=== PATIENT | male | born 1985 | race Two or more races ===

== ENCOUNTER 2020-09-24 09:15 | Outpatient (REF) | payer MEDICARE, MEDICAID, SELFPAY ==
[2020-09-24 09:39] LABS: MANUAL DIFF FLAG NO
[2020-09-24 09:43] LABS: Basophils Percent Auto 0.1 % (0-2); Eosinophils Absolute Auto 0.2 X10*3/uL (0.0-0.4); Eosinophils Percent Auto 1.3 % (0-4); Hematocrit 45.5 % (42-52); Hemoglobin 14.6 g/dl (14.0-18.0); Imm Gran Abs Auto 0.03 X10*3/uL (0.00-0.03); Imm Gran Pct Auto 0.2 % (0.0-0.4); Lymphocytes Percent Auto 36.7 % (20-40); Mean Corpuscular HGB Conc 32.1 g/dl (31.0-36.0); Mean Corpuscular Hemoglobin 29.3 pg (27.0-33.0); Mean Corpuscular Volume 91.4 fL (80-98); Mean Platelet Volume 9.4 fL (9.4-12.4); Monocytes Absolute Auto 0.4 X10*3/uL (0.1-1.2); Monocytes Percent Auto 3.1 % (2-11); Neutrophils Absolute Auto 7.9 X10*3/uL (2.0-8.3); Neutrophils Percent Auto 58.6 % (45-73); Platelet Count 359 X10*3/uL (160-400); Red Blood Count 4.98 X10*6/uL (4.60-5.80); Red Cell Distribution Width 13.4 % (11.0-16.0); White Blood Count 13.5 X10*3/uL (4.8-10.8)
[2020-09-24 10:15] LABS: Alanine Aminotransferase 9 U/L (0-40); Albumin Level 3.9 g/dL (3.5-5.0); Alkaline Phosphatase 129 U/L (39-117); Anion Gap 13 (12-20); Aspartate Amino Transferase 15 U/L (5-37); Bilirubin Total 0.2 mg/dL (0.0-1.0); Blood Urea Nitrogen 11 mg/dL (9-16); Calcium 8.9 mg/dL (8.4-10.2); Carbon Dioxide 25 mmol/L (22-29); Chloride 109 mmol/L (96-108); Cholesterol 176 mg/dL; Estimated Glomerular Filt Rate > 60; Glucose Fasting 86 mg/dL (60-99); HDL Cholesterol 41 mg/dL; LDL Cholesterol Calculated 115 mg/dl; Potassium 4.1 mmol/L (3.3-5.1); Sodium 143 mmol/L (135-145); Total Protein 7.8 g/dL (6.5-8.0); Triglycerides 104 mg/dL
[2020-09-24 10:35] LABS: TSH reflex Free T4 0.61 uIU/mL (0.32-4.0); Vitamin D 25-OH Total 31.9 ng/mL (>30)
[2020-09-24 10:53] LABS: Folate 9.7 ng/mL (> or = 4.0); Vitamin B12 861 pg/mL (200-900)
== END 2020-09-24 09:16 | disposition home or self-care (01) ==
LOC: HO.LAB 09:15
PROVIDERS: PCP Internal Medicine; Visit Provider Internal Medicine
DX: Z00.00 Encounter for general adult medical examination without abnormal findings (principal); G80.9 Cerebral palsy, unspecified; G80.0 Spastic quadriplegic cerebral palsy; G40.909 Epilepsy, unspecified, not intractable, without status epilepticus
CPT/HCPCS: 36415; 80053; 80061; 82306; 82607; 82746; 84443; 85025

== ENCOUNTER 2021-04-03 10:55 | Outpatient (REF) | payer MEDICARE, MEDICAID, SELFPAY ==
[2021-04-03 12:01] LABS: MANUAL DIFF FLAG NO
[2021-04-03 12:05] LABS: Basophils Percent Auto 0.2 % (0-2); Eosinophils Absolute Auto 0.2 X10*3/uL (0.0-0.4); Eosinophils Percent Auto 0.9 % (0-4); Hemoglobin 16.6 g/dl (14.0-18.0); Imm Gran Abs Auto 0.05 X10*3/uL (0.00-0.03); Imm Gran Pct Auto 0.3 % (0.0-0.4); Lymphocytes Absolute Auto 4.6 X10*3/uL (1.2-4.9); Lymphocytes Percent Auto 26.5 % (20-40); Mean Corpuscular HGB Conc 31.3 g/dl (31.0-36.0); Mean Corpuscular Hemoglobin 27.5 pg (27.0-33.0); Mean Corpuscular Volume 87.7 fL (80-98); Monocytes Absolute Auto 0.4 X10*3/uL (0.1-1.2); Monocytes Percent Auto 2.4 % (2-11); Neutrophils Percent Auto 69.7 % (45-73); Platelet Count 343 X10*3/uL (160-400); Red Blood Count 6.04 X10*6/uL (4.60-5.80); Red Cell Distribution Width 14.3 % (11.0-16.0); White Blood Count 17.2 X10*3/uL (4.8-10.8)
[2021-04-03 12:25] LABS: Alanine Aminotransferase 13 U/L (0-40); Albumin Level 4.7 g/dL (3.5-5.0); Alkaline Phosphatase 132 U/L (39-117); Anion Gap 20 (12-20); Aspartate Amino Transferase 26 U/L (5-37); Bilirubin Total 0.8 mg/dL (0.0-1.0); Blood Urea Nitrogen 13 mg/dL (9-16); Calcium 10.4 mg/dL (8.4-10.2); Carbon Dioxide 23 mmol/L (22-29); Chloride 105 mmol/L (96-108); Cholesterol 166 mg/dL; Estimated Glomerular Filt Rate > 60; Glucose Fasting 97 mg/dL (60-99); HDL Cholesterol 49 mg/dL; LDL Cholesterol Calculated 102 mg/dl; Potassium 4.8 mmol/L (3.3-5.1); Sodium 143 mmol/L (135-145); Total Protein 8.8 g/dL (6.5-8.0); Triglycerides 78 mg/dL
[2021-04-03 12:48] LABS: TSH reflex Free T4 1.23 uIU/mL (0.32-4.0); Vitamin D 25-OH Total 44.4 ng/mL (>30)
[2021-04-09 04:06] LABS: Levetiracetam Keppra 8.8 mcg/mL (12.0-46.0)
== END 2021-04-03 10:56 | disposition home or self-care (01) ==
LOC: HO.LAB 10:55
PROVIDERS: PCP Internal Medicine; Visit Provider Internal Medicine
DX: Z00.00 Encounter for general adult medical examination without abnormal findings (principal); E55.9 Vitamin D deficiency, unspecified; G40.909 Epilepsy, unspecified, not intractable, without status epilepticus; Z79.899 Other long term (current) drug therapy
CPT/HCPCS: 36415; 80053; 80061; 80177; 82306; 84443; 85025

== ENCOUNTER 2021-11-22 09:39 | Outpatient (REF) | payer MEDICARE, MEDICAID, SELFPAY ==
[2021-11-22 10:21] LABS: MANUAL DIFF FLAG NO
[2021-11-22 10:40] LABS: Basophils Percent Auto 0.6 % (0-2); Eosinophils Absolute Auto 0.4 X10*3/uL (0.0-0.4); Eosinophils Percent Auto 6.3 % (0-4); Hematocrit 45.9 % (42.0-52.0); Hemoglobin 14.6 g/dl (14.0-18.0); Imm Gran Abs Auto 0.02 X10*3/uL (0.00-0.03); Imm Gran Pct Auto 0.3 % (0.0-0.4); Lymphocytes Absolute Auto 3.3 X10*3/uL (1.2-4.9); Lymphocytes Percent Auto 46.9 % (20-40); Mean Corpuscular HGB Conc 31.8 g/dl (31.0-36.0); Mean Corpuscular Hemoglobin 29.1 pg (27.0-33.0); Mean Corpuscular Volume 91.4 fL (80.0-98.0); Mean Platelet Volume 9.5 fL (9.4-12.4); Monocytes Absolute Auto 0.3 X10*3/uL (0.1-1.2); Monocytes Percent Auto 4.7 % (2-11); Neutrophils Absolute Auto 2.9 x10*3/uL (2.0-8.3); Neutrophils Percent Auto 41.2 % (45-73); Platelet Count 320 X10*3/uL (160-400); Red Blood Count 5.02 X10*6/uL (4.60-5.80); Red Cell Distribution Width 13.2 % (11.0-16.0)
[2021-11-22 10:58] LABS: Alanine Aminotransferase 13 U/L (0-40); Albumin Level 3.9 g/dL (3.5-5.0); Alkaline Phosphatase 113 U/L (39-117); Anion Gap 12 (12-20); Aspartate Amino Transferase 17 U/L (5-37); Bilirubin Total 0.2 mg/dL (0.0-1.0); Blood Urea Nitrogen 24 mg/dL (9-16); Calcium 9.4 mg/dL (8.4-10.2); Carbon Dioxide 22 mmol/L (22-29); Chloride 111 mmol/L (96-108); Estimated Glomerular Filt Rate > 60; Glucose Random 89 mg/dL (60-115); Potassium 4.5 mmol/L (3.3-5.1); Sodium 140 mmol/L (135-145); Total Protein 7.6 g/dL (6.5-8.0)
== END 2021-11-22 09:40 | disposition home or self-care (01) ==
LOC: HO.LAB 09:39
PROVIDERS: PCP Internal Medicine; Visit Provider Internal Medicine
DX: D72.829 Elevated white blood cell count, unspecified (principal); E83.52 Hypercalcemia
CPT/HCPCS: 36415; 80053; 85025

== ENCOUNTER 2022-09-04 12:25 | Inpatient (IN) | payer MEDICARE, MEDICAID, SELFPAY ==
[2022-09-04] VITALS (42 sets, daily range): BP systolic 60–152; BP diastolic 31–71; PULSE 96–170; RESP 18–40; TEMP 33.2–38; O2SAT 87–100
--- NOTE | 2022-09-04 | ECG_ITS ---
Test Reason : repeat Blood Pressure : / mmHG Vent. Rate : 110 BPM Atrial Rate : 110 BPM P-R Int : 100 ms QRS Dur : 078 ms QT Int : 384 ms P-R-T Axes : 061 105 064 degrees QTc Int : 519 ms Sinus tachycardia with short UT Rightward axis Borderline ECG When compared with ECG of 04-SEP-2022 12:44, Rate slower Referred By: Dion Gibson Electronically Signed By:KATE CORDON
--- NOTE | ~2022-09-04 | XR_ITS ---
EXAMINATION: XR CHEST CLINICAL INFORMATION: Central line COMPARISON: Chest radiograph today just over one hour ago at 1:28 PM TECHNIQUE: Frontal view of the chest was obtained. FINDINGS: Since the prior study, a left IJ catheter has been placed with its tip in the SVC. Position. No left-sided pneumothorax. An NG tube remains in good position with its tip in the stomach and the patient's ET tube is 4.5 cm above the markos -at the time of the prior exam it was stated that the ET tube is 2 cm above the markos which was not well seen on that study. The current measurement is more accurate. No change in the diffuse pulmonary airspace disease. There is a cavity present measuring 3.0 x 2.2 cm in the left upper lobe. XR/XR chest 1V IMPRESSION: 1. Newly placed left IJ catheter with tip in SVC. No evidence of pneumothorax. 2. The ET tube is 4.5 cm above the markos. 3. Diffuse airspace disease unchanged. There is a left upper lobe cavitary lesion measuring 3 cm which was present at the time of the prior study earlier today as well.
--- NOTE | ~2022-09-04 | XR_ITS ---
EXAMINATION: XR CHEST CLINICAL INFORMATION: Intubated COMPARISON: Chest radiograph 06/29/2018 TECHNIQUE: Frontal view of the chest was obtained. FINDINGS: Heart size is normal. Diffuse pulmonary airspace disease is seen. An ET tube is present about 2 cm above the markos. An NG tube is present with its tip in the stomach. Patient's arm overlies the right hemithorax and mediastinum obscuring detail. No lung masses. No pneumothorax. XR/XR chest 1V IMPRESSION: ET tube 2 cm above the markos. Diffuse pulmonary airspace disease. Findings would include diffuse edema, infection or ARDS. All of these findings are new since the 06/29/2018 study was essentially normal
--- NOTE | ~2022-09-04 | MR_ITS ---
EXAMINATION: MRI BRAIN WITHOUT CONTRAST CLINICAL INFORMATION: Persistent encephalopathy after cardiac arrest. COMPARISON: CT head 09/06/2017. TECHNIQUE: Multiplanar MR imaging the brain was performed without contrast. FINDINGS: There is relatively extensive restricted diffusion involving the basal ganglia, thalami, and the cortical arechiga matter of both frontal, parietal, and occipital lobes. Findings are consistent with severe hypoxic ischemic injury in the setting of cardiac arrest. 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 There is no abnormal extra axial collection or hydrocephalus. Midline structures including the cervicomedullary junction are normal. No acute bone marrow signal changes. There are trace mastoid effusions. Moderate paranasal sinus disease primarily affecting the sphenoid sinus. Globes and orbits are symmetric. MR/MR head/brain wo con IMPRESSION: Findings are consistent with severe hypoxic ischemic injury in the setting of cardiac arrest. In addition to these findings there are multiple congenital and or chronic abnormalities including extensive polymicrogyria involving both frontal lobes and global loss of parenchymal volume resulting in ex vacuo enlargement of the lateral ventricles and widening of the Sylvian fissures.
[2022-09-04 13:15] LABS: Hematocrit 48.5 % (42.0-52.0); Hemoglobin 13.3 g/dl (14.0-18.0); Mean Corpuscular HGB Conc 27.4 g/dl (31.0-36.0); Mean Corpuscular Volume 105.7 fL (80.0-98.0); Mean Platelet Volume 12.1 fL (9.4-12.4); Red Blood Count 4.59 X10*6/uL (4.60-5.80); White Blood Count 16.1 X10*3/uL (4.8-10.8)
[2022-09-04] MEDS: 0.9 % Sodium Chloride 1,000 ML 999 ML IV ×2 (13:15→14:12)
[2022-09-04 13:38] LABS: Platelet Count 94 X10*3/uL (160-400)
[2022-09-04 13:43] LABS: Band Neutrophils Percent 2 % (3-5); Eosinophils Absolute Manual 0.2 X10*3/uL (0.0-0.4); Eosinophils Percent Manual 1 % (0-4); Lymphocytes Absolute Manual 7.1 X10*3/uL (1.2-4.9); Lymphocytes Percent Manual 44 % (20-40); Metamyelocytes Absolute 0.2 X10*3/uL; Metamyelocytes Percent 1 %; Neutrophils Absolute Manual 8.7 X10*3/uL (2.0-8.3); Neutrophils Percent Manual 52 % (45-73); Nucleated Red Blood Cells 1 /100WBC (0-0)
[2022-09-04 13:45] LABS: Acanthocytes 1+ (0-2) /OIF; Burr Cells 3+ (>5) /OIF; Platelet Estimate DECREASED (NORMAL); RBC Morphology NOTED; Schistocytes 1+ (0-2) /OIF; Smudge Cells PRESENT
--- NOTE | 2022-09-04 13:45 | ED.GENADULT ---
HPI - General Adult General Chief complaint: Cardiac Arrest/CPR Stated complaint: Cardiac arrest Time Seen by Provider: 09/04/22 12:29 Source: patient Mode of arrival: ambulatory Limitations: physical limitation History of Present Illness HPI narrative: 37-year-old male with history of cerebral palsy, general debilitation presents with unresponsiveness. Mother witnessed aspiration event prior to arrival. Upon my evaluation, patient was apneic and pulseless. CPR was initiated need immediately. Patient is unable to provide history. Otherwise, mother reports patient was in his usual state health prior to arrival. Related Data Home Medications Medication Instructions Recorded Confirmed levetiracetam 250 mg tablet 500 mg PO BID 03/31/22 09/04/22 Previous Rx's Medication Instructions Recorded cldoghlvievhrju-PY-efmmdulmbwu 30 10 ml PO Q6H PRN cold symptoms 08/25/22 mg-15 mg-200 mg/5 mL oral solution #474 mL Allergies Allergy/AdvReac Type Severity Reaction Status Date / Time Proventil Allergy Unknown Unknown Uncoded 03/31/22 09:28 tylenol syrup Allergy Unknown Unknown Uncoded 03/31/22 09:28 Review of Systems Review of Systems: Yes unobtainable due to endotracheal tube and Unobtainable due to mental condition [facility] Past Medical History Medical History Asthma Cerebral palsy Constipation Contracture of multiple joints Epilepsy Seborrheic dermatitis of scalp Severely underweight adult 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 Surgical History No significant past surgical history Family History Family History Father Diabetes mellitus Hypertension Mother Asthma Heart disease Social History Social History Housing: Apartment Alcohol intake: never Patient Tobacco Use Status: Never used Tobacco Second Hand Smoke Exposure: No Advance Directives: No Advance Directives Information Provided: Yes service: No Current occupational status: disabled Physical Exam ED Vital Signs: Vital Signs - 24 hr 09/04/22 13:16 09/04/22 13:37 09/04/22 13:44 Temperature Pulse Rate 109 H 110 H Respiratory Rate 18 30 H Blood Pressure 105/49 L 106/60 Pulse Oximetry 100 100 Fraction of Inspired Oxygen 100 09/04/22 13:47 Temperature 97 F Pulse Rate Respiratory Rate Blood Pressure Pulse Oximetry Fraction of Inspired Oxygen BMI result Body Mass Index 7.9 GEN: Is chronic ill-appearing, small for a ditch, contracted, unresponsive, apneic HEENT: Normocephalic, atraumatic, normal external ears, nose appears normal Neck: Supple, no lymphadenopathy Respiratory: Apneic Cardiovascular: Pulseless Abdomen: Soft, nondistended Extremities: No clubbing cyanosis or edema Neurologic: No obvious neurologic activity Skin: No rash Course Course Course Narrative: 37-year-old male with multiple chronic medical problems presents with unresponsiveness followed a witnessed aspiration event. Upon arrival, patient was pulseless and apneic. CPR was initiated immediately. Patient had at least 3 rounds of epinephrine intravenously through an IO. He received 1 amp of sodium bicarbonate as well. There is no history of renal dysfunction to indicate a reason to give calcium. Ultimately, patient was intubated successfully using a glide scope. X-ray confirmed appropriate ET tube placement. Eventually, pulses an electrical activity were obtained. Blood pressure became hypertensive and heart rate well over 150. Heart rate steadily improved into the low 100s. An EKG initially at a faster heart rate revealed a slightly widened QRS pattern likely rate related. As his heart rate improved, his EKG showed sinus tachycardia without a widened QRS. Once patient became more stable, family was present. I consented the patient for central line which was successfully placed on the left IJ. the IJ placement was confirmed by x-ray, the tip of the catheter was at the cavoatrial junction. Patient was admitted to the ICU. Medications Administered Generic Name Dose Route Start Last Admin Trade Name Freq PRN Reason Stop Dose Admin Sodium Chloride 1,000 mls @ 999 mls/hr 09/04/22 14:15 09/04/22 14:12 Ns IV 09/04/22 15:15 999 mls/hr .Q1H1M CAT Administration Norepinephrine Bitartrate 8 mg in 250 mls @ 0 mls/hr 09/04/22 14:15 09/04/22 14:38 Levophed IV 0.5 mcg/kg/min .Q0M CAT 19.69 mls/hr Administration Protocol Per Protocol Discontinued Medications Generic Name Dose Route Start Last Admin Trade Name Freq PRN Reason Stop Dose Admin Sodium Chloride 1,000 mls @ 999 mls/hr 09/04/22 13:15 09/04/22 13:44 Ns IV 09/04/22 14:15 Infused .Q1H1M [facility] Infusion Procedures Procedure Narrative Procedure Narrative: CPR: Patient was found pulseless and apneic. CPR was performed at my direction. Chest compressions, frequent rhythm checks, bedside echocardiography, administration of intravenous medications including epinephrine and sodium bicarbonate were performed. Patient was successfully resuscitated. Central Line Placement Left IJ: Time Out Performed: Yes Patient Placed on Monitor/Pulse Ox: Yes MD Prep: mask, gown and gloves Central Line Prep: Chlorhexidine scrub and sterile drapes applied Local Anesthetic: lidocaine 1% Amount of anesthesia used (mL): 3 Ultrasound Used for Placement: Yes Central Line Lumen Inserted: triple Post Procedure: sutured in place, good blood return, all ports aspirated, flushed, capped and sterile dressing applied Post Procedure X-Ray: tip of catheter in good position and no pneumothorax seen Patient Tolerated Procedure: well Complications: none Intubation Time out performed: Yes sedative: none Laryngoscope: other (Elysian scope) ET Tube Size: 7 ET Tube Uncuffed: No Tube Secured Depth (cm): 22 Tube Secured Location: lips Tube Placement Confirmation: visualized tube passing through cords, equal breath sounds bilaterally and confirmation by capnometry Patient Tolerated Procedure: well Intubation Complications: none Medical Decision Making Medical Decision Making [facility] Narrative: 37-year-old male chronically ill presents after witnessed aspiration event found in the emergency department the apneic and pulseless in asystole. Differential Diagnosis Differential Diagnoses: The differential diagnosis associated with the presentation includes (Aspiration, cardiac arrest, sepsis, myocardial infarction) Admission/Observation Consideration of admission/observation: Escalation of care including admission/observation considered Consult Healthcare Provider Management of the patient was discussed with: Hospitalist (insurance specialist) Lab Data [facility] Lab Attestation statement: I reviewed the patient's lab results. 09/04/22 13:00 Labs: Lab Results 09/04/22 Range/Units 13:00 WBC 16.1 H (4.8-10.8) X10*3/uL RBC 4.59 L (4.60-5.80) X10*6/uL Hgb 13.3 L (14.0-18.0) g/dl Hct 48.5 (42.0-52.0) % MCV 105.7 H (80.0-98.0) fL MCH 29.0 (27.0-33.0) pg MCHC 27.4 L (31.0-36.0) g/dl RDW 16.0 (11.0-16.0) % Plt Count 94 L D (160-400) X10*3/uL MPV 12.1 (9.4-12.4) fL Immature Gran % (Auto) Cancelled Neut % (Auto) Cancelled Lymph % (Auto) Cancelled [place] % (Auto) Cancelled Eos % (Auto) Cancelled Baso % (Auto) Cancelled Lymph # (Auto) Cancelled [place] # (Auto) Cancelled Eos # (Auto) Cancelled Baso # (Auto) Cancelled Abs Immat Gran (auto) Cancelled Absolute Neuts (auto) Cancelled Absolute Nucleated RBC 0.160 H (0.0-0.012) X10*3/uL Nucleated RBC % (auto) 1.0 H (0.0-0.2) /100WBC Neutrophils % (Manual) 52 (45-73) % Band Neutrophils % 2 L (3-5) % Lymphocytes % (Manual) 44 H (20-40) % Eosinophils % (Manual) 1 (0-4) % Metamyelocytes % 1 % Abs Neuts (Manual) 8.7 H (2.0-8.3) X10*3/uL Lymphocytes # (Manual) 7.1 H (1.2-4.9) X10*3/uL Eosinophils # (Manual) 0.2 (0.0-0.4) X10*3/uL Metamyelocytes # 0.2 X10*3/uL Nucleated RBCs 1 H (0-0) /100WBC Smudge Cells PRESENT Platelet Estimate DECREASED (NORMAL) Plt Morphology Comment NORMAL RBC Morphology NOTED Macrocytosis 1+ (5-14) /OIF [place] Cells 3+ (>5) /OIF Acanthocytes (Spur) 1+ (0-2) /OIF Schistocytes 1+ (0-2) /OIF Independent Interpretation I performed an independent interpretation of an: EKG (Initial EKG shows wide complex sinus tachycardia heart rate of approximately 150 beats per minute 2nd EKG showed sinus tachycardia with a heart rate of 110, normal intervals, no acute ST elevations depressions) and Plain X-Ray (Second x-ray performed after IJ placement confirms appropriate placement of the left IJ into the cavoatrial junction. No evidence pneumothorax.) Interpretation: Increased markings on the left side concerning for acute infiltrates possible aspiration versus an aspiration pneumonitis Radiology Impression Discussion of test interpretation with radiology: I have reviewed the radiologist's reading. (IMPRESSION: Right mid to upper lung is not adequately evaluated. Consider re-filming. Left lung is clear. No failure or effusion Dictated By:Tye Lake MDSigned By:<Electronically signed by Tye Lake MD in OV>09/04/22 [id number]) Independent Historian Clinical information obtained from an independent historian. History obtained from or confirmed by: Parent Tests considered The following testing was considered but not selected: CT scan Prescription Management I considered prescription management with: Antibiotic and Other (Pressors) Chronic Conditions Patient?s care impacted by: Other (Seizure disorder) Critical Care Time Critical Care Time Critical Care Time: Yes Total Critical Care Time: 35 Attestation: Critical care time the amount of approximately 35 minutes was performed through bedside assessment, frequent assessments, conversation with family regarding patient's condition, review of laboratory analysis, documentation. This was performed outside the procedures. Discharge Plan Discharge Clinical Impression: Cardiac arrest Patient Disposition: Admitted As Inpatient
[2022-09-04 13:46] LABS: Platelet Morphology Comment NORMAL
[2022-09-04 13:47] LABS: Macrocytosis 1+ (5-14) /OIF
--- NOTE | 2022-09-04 14:23 | PC.NURSE ---
MD at bedside to place central line, BP low norepinephrine ordered verified with pharmacy patients weight. PAtien continues on vent with no ill effect. 16 romanian gutierrez placed with good urine return earlier. Patient has OG verified with bedside xray air auscultated and return of stomack contents will CTM
[2022-09-04] MEDS: Norepinephrine Bitartrate/D5W 8 MG/250 ML PLAST..BAG 19.69 MG IV (14:38)
--- NOTE | 2022-09-04 14:40 | PHA.MEDREC ---
Pharmacy Consult ? Medication Reconciliation Pharmacy has completed the medication reconciliation. Patient move confirmed all medications. Ara Alvarado, CatarinoD
[2022-09-04 15:00] LABS: INTERNATIONAL NORM RATIO 1.7 (0.9-1.1); Prothrombin Time 20.5 SEC (10.0-13.1)
[2022-09-04 15:06] LABS: Partial Thromboplastin Time 62.3 SEC (26.0-36.4)
[2022-09-04 15:10] LABS: COVID-19 Test Negative (Negative); IDNOW Serial# 9DB6401D
[2022-09-04 15:17] LABS: Anion Gap 29 (12-20); Blood Urea Nitrogen 47 mg/dL (9-16); Calcium 7.7 mg/dL (8.4-10.2); Carbon Dioxide 15 mmol/L (22-29); Chloride 136 mmol/L (96-108); Creatinine Clr Calc Pharmacy 23.9; Estimated Glomerular Filt Rate > 60; Glucose Random 119 mg/dL (60-115); Potassium 4.1 mmol/L (3.3-5.1); Sodium 176 mmol/L (135-145)
--- NOTE | 2022-09-04 15:24 | PC.NURSE ---
report to CORRECTIONAL TREATMENT SPECIALIST
[2022-09-04 15:52] LABS: Lactic Acid 13.9 mmol/L (0.5-2.0)
--- NOTE | 2022-09-04 15:54 | P.HPCC_ITS ---
History of Present Illness Date of Service: 09/04/22 Chief Complaint: Cardiac arrest 37-year-old gentleman with spastic quadriplegia secondary to cerebral palsy with contractures and cachexia admitted on 09/04/2022 after out of hospital cardiac arrest secondary to witnessed aspiration with unclear down time with returned spontaneous circulation in emergency room after 3 rounds of CPR with patient intubated during the CPR. 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 Family History Family History Father Diabetes mellitus Hypertension Mother Asthma Heart disease Surgical History Surgical History No significant past surgical history Social History Social History Housing: Apartment Alcohol intake: never Patient Tobacco Use Status: Never used Tobacco Second Hand Smoke Exposure: No Advance Directives: No Advance Directives Information Provided: Yes service: No Current occupational status: disabled Meds Allergies Allergy/AdvReac Type Severity Reaction Status Date / Time Proventil Allergy Unknown Unknown Uncoded 03/31/22 09:28 tylenol syrup Allergy Unknown Unknown Uncoded 03/31/22 09:28 Active Medications: Current Medications Chlorhexidine Gluconate (Chlorhexidine Gluc Oral Rinse 15 Ml Mouthwash) 15 ml BUCCAL TID [facility] Last Admin: 09/04/22 15:16 Dose: Not Given Famotidine (Famotidine/Pf 20 Mg/2 Ml Vial) 20 mg IVPUSH DAILY [facility] Heparin Sodium (Porcine) (Heparin Sodium,Porcine 5,000 Unit/Ml Vial) 5,000 unit SUBCUT Q8H [facility] Norepinephrine Bitartrate (Levophed) 8 mg in 250 mls @ 0 mls/hr IV .Q0M CAT; Protocol Last Admin: 09/04/22 14:38 Dose: 0.5 mcg/kg/min, 19.69 mls/hr Ampicillin Sodium/Sulbactam (Sodium 1.5 gm/ Sodium Chloride) 100 mls @ 200 mls/hr IV Q12H CAT Propofol (Diprivan) 1,000 mg in 100 mls @ 0 mls/hr IVCONT .Q0M CAT; Protocol Norepinephrine Bitartrate 32 (mg/ Sodium Chloride) 250 mls @ 0 mls/hr IV .Q0M CAT; Protocol Levetiracetam (Levetiracetam 500 Mg/5 Ml Vial) 500 mg IV BID [facility] Pharmacy Consult (Consult Rx Perform Med Rec) 1 each MISCELLANE ONCE PRN PRN Reason: Consult order Home Medications Medication Instructions Recorded Confirmed Last Taken Type levetiracetam 250 mg tablet 500 mg PO BID 03/31/22 09/04/22 Unknown History Physical Exam Vital Signs: Vital Signs: Last Vital Signs Temp 97 F 09/04/22 13:47 Pulse 120 H 09/04/22 15:21 Resp 28 H 09/04/22 15:21 BP 85/52 L 09/04/22 15:21 Pulse Ox 93 09/04/22 15:21 O2 Del Method 09/04/22 15:21 FiO2 30 09/04/22 15:47 BMI result Body Mass Index 7.9 Const: General: other (comatose, contractures) Nutritional Appearance: cachectic HEENT: Ears: other (Pooling of blood in the left ear) Eyes: Pupils: Pinpoint pupils bilaterally Neck: Neck: Yes no lymphadenopathy, Yes trachea midline and Yes supple Resp: Effort & Inspection: normal respiratory effort and no respiratory di stress Auscultation: clear to auscultation bilaterally Cardio: Rate: tachycardic Rhythm: regular rhythm Heart sounds: no gallops, no murmurs and no rubs GI: Palpation (GI): Soft to palpation and Other GI palpation findings present ( Nontender) Auscultation: normal bowel sounds Extrem: General: No cyanosis and Yes other (Quadriplegic contractures) Results Labs 09/04/22 13:00 09/04/22 14:48 Labs: Laboratory Results - last 24 hr 09/04/22 09/04/22 09/04/22 13:00 14:47 14:47 MCV 105.7 H MCH 29.0 MCHC 27.4 L RDW 16.0 Plt Count 94 L D MPV 12.1 Immature Gran % (Auto) Cancelled Neut % (Auto) Cancelled Lymph % (Auto) Cancelled [place] % (Auto) Cancelled Eos % (Auto) Cancelled Baso % (Auto) Cancelled Lymph # (Auto) Cancelled [place] # (Auto) Cancelled Eos # (Auto) Cancelled Baso # (Auto) Cancelled Abs Immat Gran (auto) Cancelled Absolute Neuts (auto) Cancelled Absolute Nucleated RBC 0.160 H Nucleated RBC % (auto) 1.0 H Neutrophils % (Manual) 52 Band Neutrophils % 2 L Lymphocytes % (Manual) 44 H Eosinophils % (Manual) 1 Metamyelocytes % 1 Abs Neuts (Manual) 8.7 H Lymphocytes # (Manual) 7.1 H Eosinophils # (Manual) 0.2 Metamyelocytes # 0.2 Nucleated RBCs 1 H Smudge Cells PRESENT Platelet Estimate DECREASED Plt Morphology Comment NORMAL RBC Morphology NOTED Macrocytosis 1+ (5-14) Paloma Cells 3+ (>5) Acanthocytes (Spur) 1+ (0-2) Schistocytes 1+ (0-2) PT 20.5 H INR 1.7 H APTT 62.3 H* Anion Gap Estim Creat Clear Calc Estimated GFR Random Glucose Lactic Acid 13.9 H* Calcium COVID-19 (JANETH) COVID-[employer] Com 09/04/22 09/04/22 14:47 14:48 MCV MCH MCHC RDW Plt Count MPV Immature Gran % (Auto) Neut % (Auto) Lymph % (Auto) [place] % (Auto) Eos % (Auto) Baso % (Auto) Lymph # (Auto) [place] # (Auto) Eos # (Auto) Baso # (Auto) Abs Immat Gran (auto) Absolute Neuts (auto) Absolute Nucleated RBC Nucleated RBC % (auto) Neutrophils % (Manual) Band Neutrophils % Lymphocytes % (Manual) Eosinophils % (Manual) Metamyelocytes % Abs Neuts (Manual) Lymphocytes # (Manual) Eosinophils # (Manual) Metamyelocytes # Nucleated RBCs Smudge Cells Platelet Estimate Plt Morphology Comment RBC Morphology Macrocytosis Paloma Cells Acanthocytes (Spur) Schistocytes PT INR APTT Anion Gap 29 H Estim Creat Clear Calc 23.9 Estimated GFR > 60 Random Glucose 119 H Lactic Acid Calcium 7.7 L D COVID-19 (JANETH) Negative COVID-19 Clin Com See Note Imaging Radiologist's Impressions: Impressions Chest X-Ray 09/04/22 13:37 IMPRESSION: ET tube 2 cm above the markos. Diffuse pulmonary airspace disease. Findings would include diffuse edema, infection or ARDS. All of these findings are new since the 06/29/2018 study was essentially normal Chest X-Ray 09/04/22 14:51 IMPRESSION: 1. Newly placed left IJ catheter with tip in SVC. No evidence of pneumothorax. 2. The ET tube is 4.5 cm above the markos. 3. Diffuse airspace disease unchanged. There is a left upper lobe cavitary lesion measuring 3 cm which was present at the time of the prior study earlier today as well. 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: Status: Acute (5) Epilepsy: Qualifiers: Epilepsy type: unspecified Intractability: not intractable Status epilepticus: without status epilepticus Qualified Code(s): G40.909 - Epilepsy, unspecified, not intractable, without status epilepticus Status: Acute Plan Assessment: 37-year-old gentleman with underlying spastic quadriplegia seconda ry to cerebral palsy admitted after an out of hospital cardiac arrest secondary to pulmonary aspiration with unclear down time with returned spontaneous circulation achieved after 3 rounds of CPR Plan: Neuro: Not waking up after return of spontaneous circulation. Will start on hypothermia protocol. Underlying spastic quadriplegia secondary to cerebral palsy. Underlying epilepsy, continue on Keppra. Cardiac: Cardiac arrest secondary to pulmonary aspiration. 2D echocardiogram is pending. Continue to titrate off vasopressor support. Pulmonary: Acute respiratory failure with pulmonary aspiration intubated during the CPR. Continue with ventilatory support. Renal: Acute renal failure now with hypernatremia. IV fluid support. Continue to monitor renal indices and urine output. Endo: No acute issues. GI: No acute issues. ID: Empirically covered for pulmonary aspiration. No evidence for sepsis. Hypotension and organ dysfunction are secondary to cardiac arrest. Heme/Onc: No acute issues. Psych: No acute issues. Miscellaneous: No acute issues. Prophylaxis: Heparin, ppi Diet: NPO Critical care time spent: 60 minutes Time Spent With Patient Time: Total time managing care of this patient today ____ minutes.
--- NOTE | 2022-09-04 16:00 | CA_ITS ---
Transthoracic Echocardiogram Patient (Last, First, Middle): Stef Montoya, Gender: Male Date of : 1985 Age: 37 Procedure Date: 09/04/2022 Procedure Type: Transthoracic Echocardiogram Location: ICU Height: 162.56 cm Weight: 20.87 kg BSA: 1.05 m2 Heart Rate: 123 bpm BP: 91 / 60 mmHg Tobacco Hanger: SB Referring MD: Ant Singer MD Symptoms: s/p cardiac arrest Study Quality: Technically Difficult ECG Rhythm: Tachycardia Conclusions: - The left ventricular systolic function is normal. The visually estimated ejection fraction is between 60-65%. - There is mildly decreased right ventricular systolic function. - Limited visualization of valves. Findings Procedure Information Contrast agent, definity, is being given per protocol without apparent complications. The quality of the study was technically difficult. The study quality is limited by patients body habitus and the presence of a ventilator. Left Ventricle Normal left ventricular cavity size. There is normal left ventricular wall thickness. The left ventricular systolic function is normal. The visually estimated ejection fraction is between 60-65%. There is no evidence of regional wall motion abnormalities. Diastolic function is indeterminate on the basis of available data. Right Ventricle Normal right ventricular cavity size. There is mildly decreased right ventricular systolic function. Atria Both atria are normal in size. Aortic Valve The aortic valve was not well visualized. There is mild calcification of the aortic valve. There is no aortic valve stenosis. There is no aortic valve regurgitation. Mitral Valve The mitral valve was not well visualized. There is no mitral valve regurgitation. Pulmonic Valve The pulmonic valve is likely normal. Tricuspid Valve There is trace tricuspid valve regurgitation. There is no evidence of pulmonary hypertension. Great Vessels The aorta was not well visualized. Venous The inferior vena cava is normal in size and collapses greater than 50% with inspiration. Pericardium/Pleural There is no evidence of pericardial effusion. Prior Study Comparison No prior study available for comparison. Measurements 2D Linear Measurements IVSd: 0.77 0.6-0.9/0.6-1.0 cm LVIDd: 2.93 3.9-5.3/4.2-5.9 cm LVIDd Index: 2.79 2.4-3.2/2.2-3.1 cm/m2 LVIDs: 1.78 2.0-3.6 cm LVPWd: 0.62 0.7-1.1 cm LV Mass: 57.98 67-162/88-224 g LV Mass Index: 55.22 43-95/49-115 g/m2 LVOT Diam: 1.50 3.0+(-)1.3 cm Mitral Valve MV Pk E: 0.60 MV PK A: 0.53 MV Decel Time: 61.00 E/A: 1.10 E'Lateral: 4.11 E'Medial: 4.69 E/E' Med: 12.90 E/E' Lat: 14.70 PHT: 18.00 MVA PHT: 12.22 Decel [place]: 9.84 Aortic Valve AoV Pk Gen: 1.02 AoV Pk Grad: 4.00 JOSE MARIA: 1.93 LVOT LVOT Pk Gen: 1.11 LVOT Mn Gen: 0.72 LVOT VTI: 0.16 LVOT Pk Grad: 5.00 LVOT Mn Grad: 2.00 LVOT Diam: 1.50 LVOT Area: 1.77 Diastolic Function MV Pk E: 0.60 MV Pk A: 0.53 E/A: 1.10 E'Medial: 4.69 E/E' Med: 12.90 E' Laterial: 4.11 E/E' Lat: 14.70 Right Ventricle TAPSE (mm): 14.70 TVS' Gen: 11.50 Tricuspid Valve TR Pk Gen: 2.64 TR Pk Grad: 28.00 RA Press: 3.00 RVSP: 31.00 Pulmonary Valve PV Pk Gen: 1.36 Peak PV Grad: 7.00 Updated in Other Vendor System with Status of Final Dmitriy Clark MD electronically signed on 09/04/2022 5:02:27 PM with status of Final
[2022-09-04] MEDS: Heparin Sodium,Porcine 5,000 UNIT/ML VIAL 5000 UNIT SUBCUT ×2 (16:07→22:27)
[2022-09-04] MEDS: Lactated Ringers 1,000 ML 999 ML IV (16:07)
[2022-09-04] MEDS: Chlorhexidine Gluc Oral Rinse 15 ML MOUTHWASH BUCCAL (16:08)
[2022-09-04 16:38] LABS: VBG Base Excess -11.4 mmol/L; VBG HCO3 18 mmol/L (22-26); VBG pCO2 58 mmHg; VBG pH 7.09 (7.32-7.43); VBG pO2 56 mmHg
[2022-09-04 16:52] LABS: Reflex Lactate? Lactic Acid Added
[2022-09-04] MEDS: Ampicillin Sodium/Sulbactam Na 1.5 GM in 0.9 % Sodium Chloride 100 ML IV (16:57)
[2022-09-04] MEDS: Sodium Bicarbonate 8.4% 50 MEQ/50 ML VIAL IVPUSH (16:59)
[2022-09-04] MEDS: Sodium Bicarbonate 8.4% 150 MEQ in Dextrose 5 % 850 ML 100 MEQ IV (17:48)
[2022-09-04 17:54] LABS: Venous Blood Gas Refer to POC result
[2022-09-04 18:51] LABS: Hematocrit 40.1 % (42.0-52.0); Hemoglobin 11.4 g/dl (14.0-18.0); Mean Corpuscular HGB Conc 28.4 g/dl (31.0-36.0); Mean Corpuscular Hemoglobin 28.6 pg (27.0-33.0); Mean Corpuscular Volume 100.5 fL (80.0-98.0); Mean Platelet Volume 10.9 fL (9.4-12.4); NRBC Pct Auto 0.8 /100WBC (0.0-0.2); Platelet Count 173 X10*3/uL (160-400); Red Blood Count 3.99 X10*6/uL (4.60-5.80); Red Cell Distribution Width 16.1 % (11.0-16.0); White Blood Count 10.7 X10*3/uL (4.8-10.8)
[2022-09-04 19:04] LABS: Blood Urea Nitrogen 52 mg/dL (9-16); Creatinine Clr Calc Pharmacy 25.4; Estimated Glomerular Filt Rate > 60; Glucose Random 239 mg/dL (60-115); Magnesium 1.9 mg/dL (1.6-2.6); Phosphorus 7.8 mg/dL (2.7-4.5)
[2022-09-04 19:07] LABS: Troponin-I High Sensitivity 88.5 ng/L (<3.5-35.0)
[2022-09-04] MEDS: Phenylephrine HCL 20 MG in 0.9 % Sodium Chloride 250 ML 7.94 MG IVCONT (19:18)
[2022-09-04 19:19] LABS: Anion Gap 21 (12-20); Calcium 6.9 mg/dL (8.4-10.2); Carbon Dioxide 26 mmol/L (22-29); Chloride 129 mmol/L (96-108); Potassium 3.8 mmol/L (3.3-5.1); Sodium 172 mmol/L (135-145)
[2022-09-04 19:20] LABS: Band Neutrophils Percent 18 % (3-5); Lymphocytes Absolute Manual 0.9 X10*3/uL (1.2-4.9); Lymphocytes Percent Manual 8 % (20-40); Neutrophils Absolute Manual 9.6 X10*3/uL (2.0-8.3); Neutrophils Percent Manual 72 % (45-73)
[2022-09-04 19:21] LABS: Metamyelocytes Absolute 0.2 X10*3/uL; Metamyelocytes Percent 2 %; Nucleated Red Blood Cells 2 /100WBC (0-0)
[2022-09-04 19:26] LABS: RBC Morphology NOTED
[2022-09-04 19:29] LABS: Burr Cells 1+ (0-2) /OIF; Large Platelet PRESENT; Macrocytosis 1+ (5-14) /OIF; Platelet Estimate NORMAL (NORMAL); Platelet Morphology Comment NOTED
[2022-09-04 19:30] LABS: Toxic Vacuolation PRESENT
[2022-09-04] MEDS: Dextrose 5 % 1,000 ML 100 ML IVCONT (19:46)
[2022-09-04] MEDS: Calcium Gluconate/NaCl,Iso-Osm 2 GM/100 ML PLAST..BAG IV (19:47)
[2022-09-04] MEDS: Magnesium Sulfate/D5W 1 GM/100 ML PIGGYBACK IV (20:04)
[2022-09-04] MEDS: Potassium Chloride/H20 20 MEQ/100 ML PIGGYBACK 100 MEQ IV ×2 (20:05→22:17)
[2022-09-04] MEDS: Albumin Human 25 % 100 ML IV (20:19)
[2022-09-04 20:24] LABS: ABG Base Excess -1.3 mmol/L; ABG HCO3 26 mmol/L (22-26); ABG pCO2 55 mmHg (32-45); ABG pH 7.27 (7.35-7.45); ABG pO2 56 mmHg (83-108)
[2022-09-04 20:38] LABS: Reflex Lactate? 2 Y
--- NOTE | 2022-09-04 20:54 | PC.NURSE ---
ASSUMED CARE OF PT AT 1900. HEART RATE CLIMBING FAST; MONITOR SHOWS ST, 140'S-170. PHENYLEPRINE STARTED AND LEVO WEANED TO OFF. HR NOW 140'S. 1800 LAB RESULTS REVIEWED BY WALLY [place] AND CA GLUC, MAG AND KCL ORDERED. BP DROPPED AND ALBUMIN GIVEN BUT AT THIS TIME BP IS STABLE ON PRESTON 6 MCG. O2 SAT 79-88%. QUESTION IF THIS WAS ACCURATE BECAUSE O2 SAT WAVEFORM QUESTIONABLE SO PROVIDER ORDERED ABG'S WHICH WERE DONE BY RESP THERAPIST IN LEFT RADIAL ARTERY WITHOUT COMPLICATION. VENT CHANGES MADE AFTER RESULTS SHOWED PO2 OF 56. FIO2 UP TO 60% AND PEEP UP TO 7. NO URINE OUTPUT THUS FAR.
[2022-09-04 21:45] LABS: ~Lactic Acid-LAB USE ONLY 9.1 mmol/L (0.5-2.0)
[2022-09-04] MEDS: levETIRAcetam in NaCl (iso-os) 500 MG/100 ML PIGGYBACK 400 MG IV (22:20)
[2022-09-04] MEDS: Phenylephrine HCL 20 MG in 0.9 % Sodium Chloride 250 ML 87.32 MG IVCONT (22:26)
[2022-09-04] MEDS: fentaNYL citrate/PF 100 MCG/2 ML VIAL 25 MCG IVPUSH (23:26)
[2022-09-04 23:54] LABS: Anion Gap 20 (12-20); Blood Urea Nitrogen 52 mg/dL (9-16); Calcium 7.4 mg/dL (8.4-10.2); Carbon Dioxide 23 mmol/L (22-29); Chloride 128 mmol/L (96-108); Estimated Glomerular Filt Rate > 60; Glucose Random 161 mg/dL (60-115); Phosphorus 3.9 mg/dL (2.7-4.5); Potassium 4.3 mmol/L (3.3-5.1); Sodium 167 mmol/L (135-145)
[2022-09-05] VITALS (50 sets, daily range): BP systolic 77–124; BP diastolic 46–74; PULSE 117–155; RESP 16–42; TEMP 34.9–39.6; O2SAT 93–100; BMI 10.8
[2022-09-05 00:08] LABS: ABG Refer to POC result
[2022-09-05] MEDS: Calcium Gluconate/NaCl,Iso-Osm 2 GM/100 ML PLAST..BAG IV (00:32)
[2022-09-05] MEDS: Phenylephrine HCL 20 MG in 0.9 % Sodium Chloride 250 ML 87.32 MG IVCONT ×7 (01:08→18:40)
[2022-09-05] MEDS: Acetaminophen Oral Liquid 650 MG/20.3 ML SOLUTION PO (02:37)
[2022-09-05] MEDS: Ampicillin Sodium/Sulbactam Na 1.5 GM in 0.9 % Sodium Chloride 100 ML IV ×2 (03:32→15:37)
[2022-09-05 05:30] LABS: VBG Base Excess 3.2 mmol/L; VBG HCO3 28 mmol/L (22-26); VBG pCO2 45 mmHg; VBG pO2 37 mmHg
[2022-09-05 05:31] LABS: Venous Blood Gas Refer to POC result
[2022-09-05 05:37] LABS: Hematocrit 30.4 % (42.0-52.0); Hemoglobin 8.8 g/dl (14.0-18.0); Mean Corpuscular HGB Conc 28.9 g/dl (31.0-36.0); Mean Corpuscular Hemoglobin 28.5 pg (27.0-33.0); Mean Corpuscular Volume 98.4 fL (80.0-98.0); Mean Platelet Volume 11.4 fL (9.4-12.4); NRBC Pct Auto 0.4 /100WBC (0.0-0.2); Platelet Count 122 X10*3/uL (160-400); Red Blood Count 3.09 X10*6/uL (4.60-5.80); Red Cell Distribution Width 15.9 % (11.0-16.0); WBC ABN SCTR FOR CBC 1
[2022-09-05 05:38] LABS: White Blood Count 13.8 X10*3/uL (4.8-10.8)
--- NOTE | 2022-09-05 05:40 | PC.NURSE ---
pt developed a temp up to 103.3 core. tylenol given as ordered via ogt. temp came down to 99.4 core. heart rate up to 150's with temp but came down to 120's-130's after he broke the temp. pt was diaphoretic and full bedbath given. bp stable on phenylephrine. per provider, map goal is >50. pt received electrolyte replacement last night. am labs drawn at this time. resp rate has been up all night, 30-40/min. provider aware.
[2022-09-05 05:55] LABS: Albumin Level 2.4 g/dL (3.5-5.0); Phosphorus 2.9 mg/dL (2.7-4.5)
[2022-09-05 05:58] LABS: Band Neutrophils Percent 44 % (3-5); Lymphocytes Absolute Manual 2.8 X10*3/uL (1.2-4.9); Lymphocytes Percent Manual 20 % (20-40); Metamyelocytes Absolute 1.7 X10*3/uL; Metamyelocytes Percent 12 %; Neutrophils Absolute Manual 9.4 X10*3/uL (2.0-8.3); Neutrophils Percent Manual 24 % (45-73)
[2022-09-05 06:00] LABS: Nucleated Red Blood Cells 3 /100WBC (0-0)
[2022-09-05 06:01] LABS: Platelet Estimate SLIGHTLY DECREASED (NORMAL); Platelet Morphology Comment NORMAL; RBC Morphology NORMAL
[2022-09-05 06:02] LABS: Dohle Bodies PRESENT; Toxic Vacuolation PRESENT
[2022-09-05 06:07] LABS: Alanine Aminotransferase 741 U/L (0-40); Albumin Level 2.4 g/dL (3.5-5.0); Alkaline Phosphatase 63 U/L (39-117); Anion Gap 17 (12-20); Aspartate Amino Transferase 1155 U/L (5-37); Bilirubin Total 0.8 mg/dL (0.0-1.0); Blood Urea Nitrogen 53 mg/dL (9-16); Calcium 8.2 mg/dL (8.4-10.2); Carbon Dioxide 23 mmol/L (22-29); Chloride 128 mmol/L (96-108); Creatinine Clr Calc Pharmacy 19.4; Estimated Glomerular Filt Rate 51; Glucose Random 100 mg/dL (60-115); Potassium 3.2 mmol/L (3.3-5.1); Sodium 165 mmol/L (135-145); Total Protein 4.7 g/dL (6.5-8.0)
[2022-09-05] MEDS: Heparin Sodium,Porcine 5,000 UNIT/ML VIAL 5000 UNIT SUBCUT ×3 (06:12→22:21)
--- NOTE | 2022-09-05 08:21 | P.CDIC_ITS ---
CDI Concurrent Query Documentation Clarification: PHYSICIAN'S DOCUMENTATION REQUEST Date of Query: 09/05/22821 Patient Name: Stef Montoya Admit Date: 09/04/22 Dear Doctor, A review of the medical record indicates additional documentation may be indicated. Please review below and update the documentation accordingly. Clinical Indicators: Risk Factors/Clinical Indicators/Treatments Wound care notes 09/04 - Pressure Injury left buttock Stage II Foam dressing applied. Based on the above, could you please provide, in the Progress Notes, further information regarding the ulcer/wound: * If a pressure ulcer, please also include the stage* of the ulcer: * Stage 1 - Skin intact, non-blanchable redness * Stage 2 - Partial thickness loss of dermis, includes intact or open blister * Other * Unable to determine *Source: National Pressure Ulcer Advisory Panel (NPUAP) Use of terms such as suspected, likely, concern for, or probable (associated with a specific diagnosis that is being evaluated, monitored, or treated as if it exists) are acceptable and can be coded in the inpatient setting, when documented at the time of discharge. Thank you, Dang Rowe [facility], CDIS Extension: [phone] Please use your independent medical judgment in providing your response. THIS QUERY IS PART OF THE PERMANENT MEDICAL RECORD Provider Response: Other ( stage II pressure injury to left buttock present on admission) Other Diagnosis: stage II pressure injury to left buttock present on admission
[2022-09-05] MEDS: Chlorhexidine Gluc Oral Rinse 15 ML MOUTHWASH BUCCAL ×3 (08:26→19:47)
[2022-09-05] MEDS: Albumin Human 25 % 100 ML IV ×3 (08:26→19:47)
[2022-09-05] MEDS: Potassium Chloride/H20 40 MEQ/100 ML PIGGYBACK 50 MEQ IV (08:26)
[2022-09-05] MEDS: levETIRAcetam in NaCl (iso-os) 500 MG/100 ML PIGGYBACK 400 MG IV ×2 (08:26→20:45)
[2022-09-05] MEDS: Famotidine/PF 20 MG/2 ML VIAL IVPUSH (08:26)
--- NOTE | 2022-09-05 10:07 | MHC.CM.PN ---
IMM EXPLAINED TO MOTHER SANCHEZ VIA VM MESSAGE, WHITE COPY TO MAILED, YELLOW COPY TO CHART. PT REMAINS ON VENTILATORY SUPPORT. PRESSORS BEING TITRATED. BROTHER KEITH AT BEDSIDE AND PROVIDES INFORMATION. PT IS DEPENDENT WITH CARE AT BASELINE. USES W/C. PT LIVES WITH BROTHER IN AN APT, BROTHER IS RECEIVING WORKER. NO OTHER SERVICES IN HOME PREVIOUS. COPY OF HCP/GUARDIANSHIP REQUESTED FROM MOTHER VIA VM MESSAGE. PCP DR. HOUSE DP: PER BROTHER, GOAL IS HOME, RESUME RECEIVING WORKER SERVICES AND MAY BE OPEN TO A VNA SHOULD IT BE REC. CM WILL CONTINUE TO FOLLOW.
--- NOTE | 2022-09-05 10:19 | MHC.CLN ---
PT IS SEVERELY MALNOURISHED PT WITH SEVERELY DEPLETED SUBCUTANEOUS FAT AND MUSCLE MASS, BMI 10.8 WITH 30% SIGNIFICANT WT LOSS X 2 YEARS PT IS CURRENTLY INTUBATED AND SEDATED PT RECEIVING PROMOTE AT MAX GOAL RATE 30ML/HR WITH 120ML FREE WATER FLUSHES Q 6 HRS TO PROVIDE 720KCALS, 45G PROTEIN (1.6G/KG), 1084ML TOTAL WATER FROM FORMULA AND FLUSHES (38ML/KG) TF APPROPRIATE TO PROMOTE SLOW WOUND HEALING MONITOR TOLERANCE, RESIDUALS AND LYTES SEE ALSO FULL CLINICAL NUTRITION ASSESSMENT
--- NOTE | 2022-09-05 10:50 | P.PNCC_ITS ---
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 No events overnight. Critical Care Time (minutes): 45 Physical Exam Vital Signs: Vital Signs: Last Vital Signs Temp 98.4 F 09/05/22 10:00 Pulse 134 H 09/05/22 10:00 Resp 40 H 09/05/22 10:00 BP 89/49 L 09/05/22 10:00 Pulse Ox 98 09/05/22 10:00 O2 Del Method 09/05/22 10:00 FiO2 35 09/05/22 10:00 BMI result Body Mass Index 10.8 Const: General: other (comatose, spastic quadriplegia) Eyes: Pupils: Other pupil findings ( Left reactive, right unable to assess) Neck: Neck: Yes no lymphadenopathy, Yes trachea midline and Yes supple Resp: Auscultation: clear to auscultation bilaterally Cardio: Rate: tachycardic Rhythm: regular rhythm Heart sounds: no gallops, no murmurs and no rubs GI: Palpation (GI): Soft to palpation and Other GI palpation findings present ( Nontender) Auscultation: normal bowel sounds Extrem: General: No no pedal edema, No clubbing and No cyanosis Objective Data Labs 09/05/22 05:22 09/05/22 05:22 Labs: Laboratory Results - last 24 hr 09/04/22 09/04/22 09/04/22 13:00 14:47 14:47 WBC 16.1 H RBC 4.59 L Hgb 13.3 L Hct 48.5 MCV 105.7 H MCH 29.0 MCHC 27.4 L RDW 16.0 Plt Count 94 L D MPV 12.1 Immature Gran % (Auto) Cancelled Neut % (Auto) Cancelled Lymph % (Auto) Cancelled Pettis % (Auto) Cancelled Eos % (Auto) Cancelled Baso % (Auto) Cancelled Lymph # (Auto) Cancelled Pettis # (Auto) Cancelled Eos # (Auto) Cancelled Baso # (Auto) Cancelled Abs Immat Gran (auto) Cancelled Absolute Neuts (auto) Cancelled Absolute Nucleated RBC 0.160 H Nucleated RBC % (auto) 1.0 H Neutrophils % (Manual) 52 Band Neutrophils % 2 L Lymphocytes % (Manual) 44 H Eosinophils % (Manual) 1 Metamyelocytes % 1 Abs Neuts (Manual) 8.7 H Lymphocytes # (Manual) 7.1 H Eosinophils # (Manual) 0.2 Metamyelocytes # 0.2 Nucleated RBCs 1 H Smudge Cells PRESENT Toxic Vacuolation Dohle Bodies Platelet Estimate DECREASED Large Platelets Plt Morphology Comment NORMAL RBC Morphology NOTED Macrocytosis 1+ (5-14) Paloma Cells 3+ (>5) Acanthocytes (Spur) 1+ (0-2) Schistocytes 1+ (0-2) Smear Path Review SEE NOTE PT 20.5 H INR 1.7 H APTT 62.3 H* O2 Saturation ABG pH at Pt Temp ABG pCO2 at Pt Temp ABG pO2 at Pt Temp ABG HCO3 ABG Base Excess (Actual) VBG pH VBG pCO2 VBG pO2 VBG HCO3 VBG O2 Saturation VBG Base Excess Sodium Potassium Chloride Carbon Dioxide Anion Gap BUN Creatinine Estim Creat Clear Calc Estimated GFR Random Glucose Lactic Acid 13.9 H* Lactic Acid F/U @ 2Hr Lactic Acid F/U @ 4Hr Calcium Phosphorus Magnesium Total Bilirubin AST ALT Alkaline Phosphatase Troponin I High Sens Total Protein Albumin COVID-19 (JANETH) COVID-19 Clin Com 09/04/22 09/04/22 09/04/22 14:47 14:48 16:31 WBC RBC Hgb Hct MCV MCH MCHC RDW Plt Count MPV Immature Gran % (Auto) Neut % (Auto) Lymph % (Auto) Pettis % (Auto) Eos % (Auto) Baso % (Auto) Lymph # (Auto) Pettis # (Auto) Eos # (Auto) Baso # (Auto) Abs Immat Gran (auto) Absolute Neuts (auto) Absolute Nucleated RBC Nucleated RBC % (auto) Neutrophils % (Manual) Band Neutrophils % Lymphocytes % (Manual) Eosinophils % (Manual) Metamyelocytes % Abs Neuts (Manual) Lymphocytes # (Manual) Eosinophils # (Manual) Metamyelocytes # Nucleated RBCs Smudge Cells Toxic Vacuolation Dohle Bodies Platelet Estimate Large Platelets Plt Morphology Comment RBC Morphology Macrocytosis Paloma Cells Acanthocytes (Spur) Schistocytes Smear Path Review PT INR APTT O2 Saturation ABG pH at Pt Temp ABG pCO2 at Pt Temp ABG pO2 at Pt Temp ABG HCO3 ABG Base Excess (Actual) VBG pH 7.09 L* VBG pCO2 58 VBG pO2 56 VBG HCO3 18 L VBG O2 Saturation 71.0 VBG Base Excess -11.4 Sodium 176 H* D Potassium 4.1 Chloride 136 H D Carbon Dioxide 15 L Anion Gap 29 H BUN 47 H Creatinine 1.24 Estim Creat Clear Calc 23.9 Estimated GFR > 60 Random Glucose 119 H Lactic Acid Lactic Acid F/U @ 2Hr Lactic Acid F/U @ 4Hr Calcium 7.7 L D Phosphorus Magnesium Total Bilirubin AST ALT Alkaline Phosphatase Troponin I High Sens Total Protein Albumin COVID-19 (JANETH) Negative COVID-19 Clin Com See Note 09/04/22 09/04/22 09/04/22 18:21 18:21 18:21 WBC 10.7 RBC 3.99 L Hgb 11.4 L Hct 40.1 L MCV 100.5 H D MCH 28.6 MCHC 28.4 L RDW 16.1 H Plt Count 173 D MPV 10.9 Immature Gran % (Auto) Cancelled Neut % (Auto) Cancelled Lymph % (Auto) Cancelled Pettis % (Auto) Cancelled Eos % (Auto) Cancelled Baso % (Auto) Cancelled Lymph # (Auto) Cancelled Pettis # (Auto) Cancelled Eos # (Auto) Cancelled Baso # (Auto) Cancelled Abs Immat Gran (auto) Cancelled Absolute Neuts (auto) Cancelled Absolute Nucleated RBC 0.090 H Nucleated RBC % (auto) 0.8 H Neutrophils % (Manual) 72 Band Neutrophils % 18 H Lymphocytes % (Manual) 8 L Eosinophils % (Manual) Metamyelocytes % 2 Abs Neuts (Manual) 9.6 H Lymphocytes # (Manual) 0.9 L Eosinophils # (Manual) Metamyelocytes # 0.2 Nucleated RBCs 2 H Smudge Cells Toxic Vacuolation PRESENT Dohle Bodies Platelet Estimate NORMAL Large Platelets PRESENT Plt Morphology Comment NOTED RBC Morphology NOTED Macrocytosis 1+ (5-14) Paloma Cells 1+ (0-2) Acanthocytes (Spur) Schistocytes Smear Path Review PT INR APTT O2 Saturation ABG pH at Pt Temp ABG pCO2 at Pt Temp ABG pO2 at Pt Temp ABG HCO3 ABG Base Excess (Actual) VBG pH VBG pCO2 VBG pO2 VBG HCO3 VBG O2 Saturation VBG Base Excess Sodium 172 H* Potassium 3.8 Chloride 129 H Carbon Dioxide 26 Anion Gap 21 H BUN 52 H Creatinine 1.17 Estim Creat Clear Calc 25.4 Estimated GFR > 60 Random Glucose 239 H Lactic Acid Lactic Acid F/U @ 2Hr Lactic Acid F/U @ 4Hr Calcium 6.9 L D Phosphorus 7.8 H Magnesium 1.9 Total Bilirubin AST ALT Alkaline Phosphatase Troponin I High Sens 88.5 H Total Protein Albumin COVID-19 (JANETH) COVID-19 Yodio 09/04/22 09/04/22 09/04/22 18:21 20:17 21:27 WBC RBC Hgb Hct MCV MCH MCHC RDW Plt Count MPV Immature Gran % (Auto) Neut % (Auto) Lymph % (Auto) Pettis % (Auto) Eos % (Auto) Baso % (Auto) Lymph # (Auto) Pettis # (Auto) Eos # (Auto) Baso # (Auto) Abs Immat Gran (auto) Absolute Neuts (auto) Absolute Nucleated RBC Nucleated RBC % (auto) Neutrophils % (Manual) Band Neutrophils % Lymphocytes % (Manual) Eosinophils % (Manual) Metamyelocytes % Abs Neuts (Manual) Lymphocytes # (Manual) Eosinophils # (Manual) Metamyelocytes # Nucleated RBCs Smudge Cells Toxic Vacuolation Dohle Bodies Platelet Estimate Large Platelets Plt Morphology Comment RBC Morphology Macrocytosis Paloma Cells Acanthocytes (Spur) Schistocytes Smear Path Review PT INR APTT O2 Saturation 81.0 ABG pH at Pt Temp 7.27 L ABG pCO2 at Pt Temp 55 H ABG pO2 at Pt Temp 56 L ABG HCO3 26 ABG Base Excess (Actual) -1.3 VBG pH VBG pCO2 VBG pO2 VBG HCO3 VBG O2 Saturation VBG Base Excess Sodium Potassium Chloride Carbon Dioxide Anion Gap BUN Creatinine Estim Creat Clear Calc Estimated GFR Random Glucose Lactic Acid Lactic Acid F/U @ 2Hr 9.0 H* Lactic Acid F/U @ 4Hr 9.1 H* Calcium Phosphorus Magnesium Total Bilirubin AST ALT Alkaline Phosphatase Troponin I High Sens Total Protein Albumin COVID-19 (JANETH) COVID-19 Yodio 09/04/22 09/05/22 09/05/22 23:12 05:22 05:22 WBC 13.8 H RBC 3.09 L D Hgb 8.8 L D Hct 30.4 L D MCV 98.4 H MCH 28.5 MCHC 28.9 L RDW 15.9 Plt Count 122 L D MPV 11.4 Immature Gran % (Auto) Cancelled Neut % (Auto) Cancelled Lymph % (Auto) Cancelled Pettis % (Auto) Cancelled Eos % (Auto) Cancelled Baso % (Auto) Cancelled Lymph # (Auto) Cancelled Pettis # (Auto) Cancelled Eos # (Auto) Cancelled Baso # (Auto) Cancelled Abs Immat Gran (auto) Cancelled Absolute Neuts (auto) Cancelled Absolute Nucleated RBC 0.060 H Nucleated RBC % (auto) 0.4 H Neutrophils % (Manual) 24 L Band Neutrophils % 44 H Lymphocytes % (Manual) 20 Eosinophils % (Manual) Metamyelocytes % 12 Abs Neuts (Manual) 9.4 H Lymphocytes # (Manual) 2.8 Eosinophils # (Manual) Metamyelocytes # 1.7 Nucleated RBCs 3 H Smudge Cells Toxic Vacuolation PRESENT Dohle Bodies PRESENT Platelet Estimate SLIGHTLY DECREASED Large Platelets Plt Morphology Comment NORMAL RBC Morphology NORMAL Macrocytosis [place] Cells Acanthocytes (Spur) Schistocytes Smear Path Review PT INR APTT O2 Saturation ABG pH at Pt Temp ABG pCO2 at Pt Temp ABG pO2 at Pt Temp ABG HCO3 ABG Base Excess (Actual) VBG pH VBG pCO2 VBG pO2 VBG HCO3 VBG O2 Saturation VBG Base Excess Sodium 167 H* Potassium 4.3 Chloride 128 H Carbon Dioxide 23 Anion Gap 20 BUN 52 H Creatinine 1.29 Estim Creat Clear Calc 23.0 Estimated GFR > 60 Random Glucose 161 H Lactic Acid Lactic Acid F/U @ 2Hr Lactic Acid F/U @ 4Hr Calcium 7.4 L D Phosphorus 3.9 2.9 Magnesium 2.0 Total Bilirubin AST ALT Alkaline Phosphatase Troponin I High Sens Total Protein Albumin 2.4 L COVID-19 (JANETH) COVID-19 Clin Com 09/05/22 09/05/22 05:22 05:22 WBC RBC Hgb Hct MCV MCH MCHC RDW Plt Count MPV Immature Gran % (Auto) Neut % (Auto) Lymph % (Auto) Pettis % (Auto) Eos % (Auto) Baso % (Auto) Lymph # (Auto) Pettis # (Auto) Eos # (Auto) Baso # (Auto) Abs Immat Gran (auto) Absolute Neuts (auto) Absolute Nucleated RBC Nucleated RBC % (auto) Neutrophils % (Manual) Band Neutrophils % Lymphocytes % (Manual) Eosinophils % (Manual) Metamyelocytes % Abs Neuts (Manual) Lymphocytes # (Manual) Eosinophils # (Manual) Metamyelocytes # Nucleated RBCs Smudge Cells Toxic Vacuolation Dohle Bodies Platelet Estimate Large Platelets Plt Morphology Comment RBC Morphology Macrocytosis Paloma Cells Acanthocytes (Spur) Schistocytes Smear Path Review PT INR APTT O2 Saturation ABG pH at Pt Temp ABG pCO2 at Pt Temp ABG pO2 at Pt Temp ABG HCO3 ABG Base Excess (Actual) VBG pH 7.40 VBG pCO2 45 VBG pO2 37 VBG HCO3 28 H VBG O2 Saturation 59.0 VBG Base Excess 3.2 Sodium 165 H* Potassium 3.2 L D Chloride 128 H Carbon Dioxide 23 Anion Gap 17 BUN 53 H Creatinine 1.53 H Estim Creat Clear Calc 19.4 Estimated GFR 51 Random Glucose 100 Lactic Acid Lactic Acid F/U @ 2Hr Lactic Acid F/U @ 4Hr Calcium 8.2 L D Phosphorus Magnesium Total Bilirubin 0.8 AST 1155 H ALT 741 H Alkaline Phosphatase 63 Troponin I High Sens Total Protein 4.7 L Albumin 2.4 L COVID-19 (JANETH) COVID-19 Clin Com Progress Note: A&P Assessment and plan (1) Pulmonary aspiration: Status: Acute (2) Cardiac arrest: Status: Acute (3) 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: Status: Acute (4) Epilepsy: Status: Acute (5) Severe protein-calorie malnutrition: Status: Acute (6) Acute renal failure: Status: Acute (7) Acute respiratory failure with hypoxia: Status: Acute Plan Assessment: 37-year-old gentleman with underlying spastic quadriplegia secondary to cerebral palsy admitted after an out of hospital cardiac arrest secondary to pulmonary aspiration with unclear down time with returned spontaneous circulation achieved after 3 rounds of CPR Plan: Neuro: Not waking up after return of spontaneous circulation. Targeted temperature management. Underlying spastic quadriplegia secondary to cerebral palsy. Underlying epilepsy, continue on Keppra. Cardiac: Cardiac arrest secondary to pulmonary aspiration. 2D echocardiogram with normal left-sided ejection fraction. Continue to titrate off vasopressor support. Pulmonary: Acute respiratory failure with pulmonary aspiration intubated during the CPR. Continue with ventilatory support. Renal: Acute renal failure with hypernatremia, likely ATN after cardiac arrest. IV fluid support. Continue to monitor renal indices and urine output. Endo: No acute issues. GI: No acute issues. ID: Empirically covered for pulmonary aspiration. No evidence for sepsis. Hypotension and organ dysfunction are secondary to cardiac arrest and sedation. Heme/Onc: No acute issues. Psych: No acute issues. Miscellaneous: No acute issues. Prophylaxis: Heparin, ppi Diet: tube feeds Critical care time spent: 45 minutes Quality Stroke Does the patient have a stroke diagnosis?: No VTE Prior VTE?: No VTE Risk Level:: Medical - moderate - high VTE Device Contraindication: Treatment Not Tolerated VTE Drug Contraindication: N/A - Med Ordered
--- NOTE | 2022-09-05 11:05 | MHC.CDI.CONC ---
CDI Concurrent Query Documentation Clarification: PHYSICIAN'S DOCUMENTATION REQUEST Date of Query: 09/05/22 1105 Patient Name: Stef Montoya Admit Date: 09/04/22 Dear Doctor, A review of the medical record indicates additional documentation may be needed. Please review below and update the documentation accordingly. Clinical Indicators: Risk Factors/Clinical Indicators/Treatments ED 09/04 - Possible aspiration vs an aspiration pneumonitis ICU H&P - Assessment/plan: Pulmonary aspiration, cardiac arrest 2nd to pulmonary aspiration, intubated during CPR/vent support, Empirically covered for pulmonary aspiration. Based on the above, could you clarify in the Progress Notes further specificity regarding the most likely type of pneumonia you suspect you are treating (even if specific organism may not be known)? Aspiration - indicate substance such as food or vomitus, oils, or other solids or liquids Aspiration Pneumonia Aspiration Pneumonitis Other specifics to the Pulmonary aspiration Other type Unable to determine Use of terms such as suspected, likely, concern for, or probable (associated with a specific diagnosis that is being evaluated, monitored, or treated as if it exists) are acceptable and can be coded in the inpatient setting, when documented at the time of discharge. Thank you, Dang Rowe [facility], CDIS Extension: [phone] Please use your independent medical judgment in providing your response. THIS QUERY IS PART OF THE PERMANENT MEDICAL RECORD Provider Response: Other ( aspiration pneumonia versus aspiration pneumonitis) Other Diagnosis: aspiration pneumonia versus aspiration pneumonitis
--- NOTE | 2022-09-05 18:45 | PC.NURSE ---
Pt continues to be intubated on AC settings of 16/300/5/35%, tolerating and satting appropriately. Pt continues to be ST on tele from 130s and now down to 110s, continues to be on Sam gtt and Map maintained > 50 per plan. Pt started on Promote TF at 10cc/hr, and water flushes Q6hr, UO increased from 10cc to now 30cc average, continues to be on gutierrez, draining dark yellow urine. Pt's dressing to coccyx and buttocks changed. Pt incontinent of stool, incontinence care provided PRN. Pt bathed and skin care provided PRN. Repositioned evry 2 hrs and PRN, prevalon system and turning bed utilized. Family at bedside and updated, all questions answered. Pt's febrile, cooling blanket in place, effective. Safety maintained throughout. Will continue to monitor.
[2022-09-05] MEDS: Phenylephrine HCL 20 MG in 0.9 % Sodium Chloride 250 ML 79.38 MG IVCONT (20:14)
[2022-09-05] MEDS: Phenylephrine HCL 20 MG in 0.9 % Sodium Chloride 250 ML 55.57 MG IVCONT (22:21)
[2022-09-05] MEDS: Artificial Tears Ophth Oint 3.5 GM TUBE 1 APPL EYE-BOTH (22:35)
[2022-09-06] VITALS (39 sets, daily range): BP systolic 99–143; BP diastolic 54–81; PULSE 118–143; RESP 20–242; TEMP 34.9–38.9; O2SAT 93–100; BMI 12.4
[2022-09-06] MEDS: Albumin Human 25 % 100 ML IV (01:09)
[2022-09-06] MEDS: Phenylephrine HCL 20 MG in 0.9 % Sodium Chloride 250 ML 39.69 MG IVCONT (01:16)
[2022-09-06] MEDS: Ampicillin Sodium/Sulbactam Na 1.5 GM in 0.9 % Sodium Chloride 100 ML IV ×2 (03:52→15:27)
[2022-09-06 05:31] LABS: VBG Base Excess -2.3 mmol/L; VBG HCO3 22 mmol/L (22-26); VBG pCO2 39 mmHg; VBG pH 7.36 (7.32-7.43); VBG pO2 51 mmHg
[2022-09-06] MEDS: Heparin Sodium,Porcine 5,000 UNIT/ML VIAL 5000 UNIT SUBCUT ×3 (06:06→22:10)
[2022-09-06 06:35] LABS: Hematocrit 25.6 % (42.0-52.0); Hemoglobin 7.8 g/dl (14.0-18.0); Mean Corpuscular HGB Conc 30.5 g/dl (31.0-36.0); Mean Corpuscular Hemoglobin 28.7 pg (27.0-33.0); Mean Corpuscular Volume 94.1 fL (80.0-98.0); Mean Platelet Volume 11.7 fL (9.4-12.4); NRBC Pct Auto 0.3 /100WBC (0.0-0.2); Platelet Count 113 X10*3/uL (160-400); Red Blood Count 2.72 X10*6/uL (4.60-5.80); Red Cell Distribution Width 16.4 % (11.0-16.0); WBC ABN SCTR FOR CBC 1; White Blood Count 22.9 X10*3/uL (4.8-10.8)
[2022-09-06 07:18] LABS: Band Neutrophils Percent 18 % (3-5); Eosinophils Absolute Manual 0.2 X10*3/uL (0.0-0.4); Eosinophils Percent Manual 1 % (0-4); Lymphocytes Absolute Manual 4.1 X10*3/uL (1.2-4.9); Lymphocytes Percent Manual 18 % (20-40); Metamyelocytes Absolute 0.2 X10*3/uL; Metamyelocytes Percent 1 %; Neutrophils Absolute Manual 18.3 X10*3/uL (2.0-8.3); Neutrophils Percent Manual 62 % (45-73); Nucleated Red Blood Cells 1 /100WBC (0-0)
[2022-09-06 07:26] LABS: Alanine Aminotransferase 481 U/L (0-40); Albumin Level 3.6 g/dL (3.5-5.0); Alkaline Phosphatase 67 U/L (39-117); Anion Gap 18 (12-20); Aspartate Amino Transferase 518 U/L (5-37); Blood Urea Nitrogen 52 mg/dL (9-16); Calcium 7.2 mg/dL (8.4-10.2); Carbon Dioxide 18 mmol/L (22-29); Chloride 128 mmol/L (96-108); Creatinine Clr Calc Pharmacy 26.4; Estimated Glomerular Filt Rate 44; Glucose Random 62 mg/dL (60-115); Magnesium 1.8 mg/dL (1.6-2.6); Phosphorus 2.6 mg/dL (2.7-4.5); Potassium 3.9 mmol/L (3.3-5.1); Sodium 160 mmol/L (135-145); Total Protein 5.3 g/dL (6.5-8.0)
[2022-09-06 07:29] LABS: Burr Cells 1+ (0-2) /OIF; RBC Morphology NOTED
[2022-09-06 07:30] LABS: Hypochromasia 1+ (5-14) /OIF; Platelet Estimate DECREASED (NORMAL); Platelet Morphology Comment NORMAL
[2022-09-06 08:17] LABS: Venous Blood Gas Refer to POC result
[2022-09-06] MEDS: Chlorhexidine Gluc Oral Rinse 15 ML MOUTHWASH BUCCAL ×3 (08:57→19:45)
[2022-09-06] MEDS: Famotidine/PF 20 MG/2 ML VIAL IVPUSH (08:57)
[2022-09-06] MEDS: Phenylephrine HCL 20 MG in 0.9 % Sodium Chloride 250 ML 23.81 MG IVCONT (08:58)
[2022-09-06] MEDS: levETIRAcetam in NaCl (iso-os) 500 MG/100 ML PIGGYBACK 400 MG IV ×2 (09:00→19:45)
[2022-09-06] MEDS: Potassium Phosphate/NS 15 MMOL/250 ML PLAST..BAG 62.5 MMOL IV (09:03)
--- NOTE | 2022-09-06 09:07 | P.PNCC_ITS ---
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 Post CPR echo essentially normal. However, still with no significant improvement in neurologic status or renal function. No events overnight. Hypernatremia improving. Critical Care Time (minutes): 45 Physical Exam Vital Signs: Vital Signs: Last Vital Signs Temp 99.0 F 09/06/22 09:00 Pulse 134 H 09/06/22 09:00 Resp 26 H 09/06/22 09:00 BP 128/74 09/06/22 09:00 Pulse Ox 95 09/06/22 09:00 O2 Del Method 09/06/22 09:00 FiO2 30 09/06/22 09:00 BMI result Body Mass Index 12.4 Const: General: other (comatose) Eyes: Sclerae: sclerae normal Pupils: Other pupil findings ( Bilateral responsive, but sluggish) Neck: Neck: Yes no lymphadenopathy, Yes trachea midline and Yes supple Resp: Auscultation: clear to auscultation bilaterally Cardio: Rate: tachycardic Rhythm: regular rhythm Heart sounds: no gallops, no murmurs and no rubs GI: Palpation (GI): Soft to palpation and Other GI palpation findings present ( Nontender) Auscultation: normal bowel sounds Extrem: General: No clubbing, No cyanosis and Yes other (spastic quadriplegic) Objective Data Labs 09/06/22 05:18 09/06/22 05:18 Labs: Laboratory Results - last 24 hr 09/04/22 09/06/22 09/06/22 13:00 05:18 05:18 WBC 22.9 H RBC 2.72 L Hgb 7.8 L Hct 25.6 L MCV 94.1 MCH 28.7 MCHC 30.5 L RDW 16.4 H Plt Count 113 L MPV 11.7 Immature Gran % (Auto) Cancelled Neut % (Auto) Cancelled Lymph % (Auto) Cancelled [place] % (Auto) Cancelled Eos % (Auto) Cancelled Baso % (Auto) Cancelled Lymph # (Auto) Cancelled [place] # (Auto) Cancelled Eos # (Auto) Cancelled Baso # (Auto) Cancelled Abs Immat Gran (auto) Cancelled Absolute Neuts (auto) Cancelled Absolute Nucleated RBC 0.060 H Nucleated RBC % (auto) 0.3 H Neutrophils % (Manual) 62 Band Neutrophils % 18 H Lymphocytes % (Manual) 18 L Eosinophils % (Manual) 1 Metamyelocytes % 1 Abs Neuts (Manual) 18.3 H Lymphocytes # (Manual) 4.1 Eosinophils # (Manual) 0.2 Metamyelocytes # 0.2 Nucleated RBCs 1 H Platelet Estimate DECREASED Plt Morphology Comment NORMAL RBC Morphology NOTED Hypochromasia 1+ (5-14) [place] Cells 1+ (0-2) Smear Path Review SEE NOTE VBG pH VBG pCO2 VBG pO2 VBG HCO3 VBG O2 Saturation VBG Base Excess Sodium 160 H* Potassium 3.9 D Chloride 128 H Carbon Dioxide 18 L Anion Gap 18 BUN 52 H Creatinine 1.76 H Estim Creat Clear Calc 26.4 Estimated GFR 44 Random Glucose 62 Calcium 7.2 L D Phosphorus 2.6 L Magnesium 1.8 Total Bilirubin 1.0 AST 518 H ALT 481 H Alkaline Phosphatase 67 Total Protein 5.3 L Albumin 3.6 09/06/22 05:24 WBC RBC Hgb Hct MCV MCH MCHC RDW Plt Count MPV Immature Gran % (Auto) Neut % (Auto) Lymph % (Auto) [place] % (Auto) Eos % (Auto) Baso % (Auto) Lymph # (Auto) [place] # (Auto) Eos # (Auto) Baso # (Auto) Abs Immat Gran (auto) Absolute Neuts (auto) Absolute Nucleated RBC Nucleated RBC % (auto) Neutrophils % (Manual) Band Neutrophils % Lymphocytes % (Manual) Eosinophils % (Manual) Metamyelocytes % Abs Neuts (Manual) Lymphocytes # (Manual) Eosinophils # (Manual) Metamyelocytes # Nucleated RBCs Platelet Estimate Plt Morphology Comment RBC Morphology Hypochromasia [place] Cells Smear Path Review VBG pH 7.36 VBG pCO2 39 VBG pO2 51 VBG HCO3 22 VBG O2 Saturation 80.0 VBG Base Excess -2.3 Sodium Potassium Chloride Carbon Dioxide Anion Gap BUN Creatinine Estim Creat Clear Calc Estimated GFR Random Glucose Calcium Phosphorus Magnesium Total Bilirubin AST ALT Alkaline Phosphatase Total Protein Albumin Microbiology Microbiology Results: Microbiology 09/04/22 15:11 Blood - Venous Blood Culture - Preliminary No growth after 24 hours. 09/04/22 15:11 Blood - Venous Blood Culture - Preliminary No growth after 24 hours. 09/04/22 14:53 Blood - Venous Blood Culture - Preliminary No growth after 24 hours. Progress Note: A&P Assessment and plan (1) Acute respiratory failure with hypoxia: Status: Acute (2) Acute renal failure: Status: Acute (3) Severe protein-calorie malnutrition: Status: Acute (4) Pulmonary aspiration: Status: Acute (5) Cardiac arrest: Status: Acute (6) 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: Status: Acute Plan Assessment: 37-year-old gentleman with underlying spastic quadriplegia secondary to cerebral palsy admitted after an out of hospital cardiac arrest secondary to pulmonary aspiration with unclear down time with returned spontaneous circulation achieved after 3 rounds of CPR Plan: Neuro: Comatose, if no improvement in the next 24 hours, will consider brain MRI. Underlying spastic quadriplegia secondary to cerebral palsy. Underlying epilepsy, continue on Keppra. Cardiac: Cardiac arrest secondary to pulmonary aspiration. 2D echocardiogram with normal left-sided ejection fraction. Continue to titrate off vasopressor support. Pulmonary: Acute respiratory failure with pulmonary aspiration intubated during the CPR, improving. Continue with ventilatory support. Renal: Acute renal failure with hypernatremia, likely ATN after cardiac arrest. Hypernatremia improving. Continue to monitor renal indices and urine output. Endo: No acute issues. GI: Ischemic hepatitis is improving. ID: Empirically covered for pulmonary aspiration. No evidence for sepsis. Hypotension and organ dysfunction are secondary to cardiac arrest and sedation. Heme/Onc: No acute issues. Psych: No acute issues. Miscellaneous: No acute issues. Prophylaxis: Heparin, ppi Diet: tube feeds Critical care time spent: 45 minutes Quality Stroke Does the patient have a stroke diagnosis?: No VTE Prior VTE?: No VTE Risk Level:: Medical - moderate - high VTE Device Contraindication: Treatment Not Tolerated VTE Drug Contraindication: N/A - Med Ordered
[2022-09-06] MEDS: Artificial Tears Ophth Oint 3.5 GM TUBE 1 APPL EYE-BOTH (15:30)
--- NOTE | 2022-09-06 18:04 | PC.NURSE ---
PATIENT FOUND UNAROUSABLE ON NO SEDATION DURING MORNING ASSESSMENT, STATED BY PRIOR NIGHT RN. SEE ASSESSMENT FOR FULL DETAILS. PATIENT ABLE TO MAINTAIN AND SURPASS MAP GOAL PER MD. PHENYLEPHRINE GTT TITRATED DOWN PER PROTOCOL, EVENTUALLY ABLE TO HAVE GTT PAUSED. PATIENT NEVER REQUIRING GTT TO BE RESTARTED. SEE EMAR FOR COMPLETE TITRATION LIST. PATIENT BATHED, REPOSITIONED Q2HR, ROUTINE ORAL CARE PROVIDED. PATIENT AND FAMILY UPDATED EXTENSIVELY BY RN AND MD THROUGHOUT DAY ON CURRENT HEALTH STATUS AND PROGRESSION OF CARE PLAN.
[2022-09-07] VITALS (29 sets, daily range): BP systolic 96–134; BP diastolic 54–81; PULSE 119–130; RESP 19–33; TEMP 34.5–37.9; O2SAT 90–100; BMI 12.8
[2022-09-07] MEDS: Artificial Tears Ophth Oint 3.5 GM TUBE 1 APPL EYE-BOTH ×2 (00:10→23:39)
[2022-09-07] MEDS: Ampicillin Sodium/Sulbactam Na 1.5 GM in 0.9 % Sodium Chloride 100 ML IV ×2 (03:22→15:38)
[2022-09-07 05:24] LABS: VBG Base Excess 0.4 mmol/L; VBG HCO3 23 mmol/L (22-26); VBG pCO2 33 mmHg; VBG pH 7.45 (7.32-7.43); VBG pO2 50 mmHg
[2022-09-07] MEDS: Heparin Sodium,Porcine 5,000 UNIT/ML VIAL 5000 UNIT SUBCUT ×3 (06:00→23:31)
[2022-09-07 06:49] LABS: Hematocrit 23.2 % (42.0-52.0); Hemoglobin 7.3 g/dl (14.0-18.0); Mean Corpuscular HGB Conc 31.5 g/dl (31.0-36.0); Mean Corpuscular Hemoglobin 29.3 pg (27.0-33.0); Mean Corpuscular Volume 93.2 fL (80.0-98.0); Mean Platelet Volume 12.9 fL (9.4-12.4); NRBC Pct Auto 0.4 /100WBC (0.0-0.2); Platelet Count 112 X10*3/uL (160-400); Red Blood Count 2.49 X10*6/uL (4.60-5.80); Red Cell Distribution Width 16.9 % (11.0-16.0)
[2022-09-07 06:52] LABS: WBC ABN SCTR FOR CBC 1
[2022-09-07 07:15] LABS: White Blood Count 19.8 X10*3/uL (4.8-10.8)
[2022-09-07 07:17] LABS: Band Neutrophils Percent 3 % (3-5); Dohle Bodies PRESENT; Lymphocytes Absolute Manual 2.2 X10*3/uL (1.2-4.9); Lymphocytes Percent Manual 11 % (20-40); Neutrophils Absolute Manual 17.6 X10*3/uL (2.0-8.3); Neutrophils Percent Manual 86 % (45-73); RBC Morphology NORMAL
[2022-09-07 07:18] LABS: Basophilic Stippling 1+ (0-2) /OIF; Ovalocytes 1+ (5-14) /OIF; Platelet Estimate SLIGHTLY DECREASED (NORMAL); Platelet Morphology Comment NOTED
[2022-09-07 07:19] LABS: Large Platelet PRESENT
[2022-09-07 08:03] LABS: Alanine Aminotransferase 382 U/L (0-40); Albumin Level 2.8 g/dL (3.5-5.0); Alkaline Phosphatase 138 U/L (39-117); Anion Gap 15 (12-20); Aspartate Amino Transferase 254 U/L (5-37); Bilirubin Total 0.9 mg/dL (0.0-1.0); Blood Urea Nitrogen 51 mg/dL (9-16); Calcium 6.6 mg/dL (8.4-10.2); Carbon Dioxide 20 mmol/L (22-29); Chloride 125 mmol/L (96-108); Creatinine Clr Calc Pharmacy 32.8; Estimated Glomerular Filt Rate 54; Glucose Random 94 mg/dL (60-115); Magnesium 1.7 mg/dL (1.6-2.6); Phosphorus 1.9 mg/dL (2.7-4.5); Potassium 3.3 mmol/L (3.3-5.1); Sodium 157 mmol/L (135-145); Total Protein 4.8 g/dL (6.5-8.0)
[2022-09-07] MEDS: levETIRAcetam in NaCl (iso-os) 500 MG/100 ML PIGGYBACK 400 MG IV ×2 (08:27→20:03)
[2022-09-07] MEDS: Chlorhexidine Gluc Oral Rinse 15 ML MOUTHWASH BUCCAL ×3 (08:27→19:59)
[2022-09-07] MEDS: Famotidine/PF 20 MG/2 ML VIAL IVPUSH (08:27)
[2022-09-07] MEDS: Potassium Phosphate/NS 15 MMOL/250 ML PLAST..BAG 62.5 MMOL IV ×2 (09:33→14:30)
[2022-09-07] MEDS: Albumin Human 25 % 100 ML IV ×3 (09:39→19:59)
--- NOTE | 2022-09-07 09:42 | P.PNCC_ITS ---
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 Post CPR echo essentially normal. However, still with no significant improvement in neurologic status or renal function. No events overnight. Hypernatremia and renal function are improving. Critical Care Time (minutes): 45 Physical Exam Vital Signs: Vital Signs: Last Vital Signs Temp 100.3 F 09/07/22 08:00 Pulse 129 H 09/07/22 09:00 Resp 21 H 09/07/22 09:00 BP 116/68 09/07/22 09:00 Pulse Ox 92 09/07/22 09:00 O2 Del Method 09/07/22 09:00 FiO2 24 09/07/22 09:00 BMI result Body Mass Index 12.8 Const: General: other (comatose, spastic quadriplegia) Eyes: Sclerae: sclerae normal Neck: Neck: Yes no lymphadenopathy, Yes trachea midline and Yes supple Resp: Auscultation: clear to auscultation bilaterally Cardio: Rate: tachycardic Rhythm: regular rhythm Heart sounds: no gallops, no murmurs and no rubs GI: Palpation (GI): Soft to palpation and Other GI palpation findings present ( Nontender) Auscultation: normal bowel sounds Extrem: General: No clubbing and No cyanosis Objective Data Labs 09/07/22 05:17 09/07/22 05:17 Labs: Laboratory Results - last 24 hr 09/07/22 09/07/22 09/07/22 05:17 05:17 05:17 WBC 19.8 H RBC 2.49 L Hgb 7.3 L Hct 23.2 L MCV 93.2 MCH 29.3 MCHC 31.5 RDW 16.9 H Plt Count 112 L MPV 12.9 H Immature Gran % (Auto) Cancelled Neut % (Auto) Cancelled Lymph % (Auto) Cancelled [place] % (Auto) Cancelled Eos % (Auto) Cancelled Baso % (Auto) Cancelled Lymph # (Auto) Cancelled [place] # (Auto) Cancelled Eos # (Auto) Cancelled Baso # (Auto) Cancelled Abs Immat Gran (auto) Cancelled Absolute Neuts (auto) Cancelled Absolute Nucleated RBC 0.080 H Nucleated RBC % (auto) 0.4 H Neutrophils % (Manual) 86 H Band Neutrophils % 3 Lymphocytes % (Manual) 11 L Abs Neuts (Manual) 17.6 H Lymphocytes # (Manual) 2.2 Dohle Bodies PRESENT Platelet Estimate SLIGHTLY DECREASED Large Platelets PRESENT Plt Morphology Comment NOTED RBC Morphology NORMAL Basophilic Stipp[place] 1+ (0-2) Ovalocytes 1+ (5-14) VBG pH 7.45 H VBG pCO2 33 VBG pO2 50 VBG HCO3 23 VBG O2 Saturation 82.0 VBG Base Excess 0.4 Sodium 157 H Potassium 3.3 Chloride 125 H Carbon Dioxide 20 L Anion Gap 15 BUN 51 H Creatinine 1.46 H Estim Creat Clear Calc 32.8 Estimated GFR 54 Random Glucose 94 Calcium 6.6 L D Phosphorus 1.9 L Magnesium 1.7 Total Bilirubin 0.9 AST 254 H ALT 382 H Alkaline Phosphatase 138 H Total Protein 4.8 L Albumin 2.8 L Blood Type Antibody Screen 09/07/22 08:49 WBC RBC Hgb Hct MCV MCH MCHC RDW Plt Count MPV Immature Gran % (Auto) Neut % (Auto) Lymph % (Auto) [place] % (Auto) Eos % (Auto) Baso % (Auto) Lymph # (Auto) [place] # (Auto) Eos # (Auto) Baso # (Auto) Abs Immat Gran (auto) Absolute Neuts (auto) Absolute Nucleated RBC Nucleated RBC % (auto) Neutrophils % (Manual) Band Neutrophils % Lymphocytes % (Manual) Abs Neuts (Manual) Lymphocytes # (Manual) Dohle Bodies Platelet Estimate Large Platelets Plt Morphology Comment RBC Morphology Basophilic Stippling Ovalocytes VBG pH VBG pCO2 VBG pO2 VBG HCO3 VBG O2 Saturation VBG Base Excess Sodium Potassium Chloride Carbon Dioxide Anion Gap BUN Creatinine Estim Creat Clear Calc Estimated GFR Random Glucose Calcium Phosphorus Magnesium Total Bilirubin AST ALT Alkaline Phosphatase Total Protein Albumin Blood Type O Positive Antibody Screen NEGATIVE Microbiology Microbiology Results: Microbiology 09/04/22 15:11 Blood - Venous Blood Culture - Preliminary Prelim: GPR Gram Stain only 09/04/22 15:11 Blood - Venous Blood Culture - Preliminary Prelim: GPR Gram Stain only 09/04/22 14:53 Blood - Venous Blood Culture - Preliminary Prelim: GPR Gram Stain only Progress Note: A&P Assessment and plan (1) Acute respiratory failure with hypoxia: Status: Acute (2) Acute renal failure: Status: Acute (3) Severe protein-calorie malnutrition: Status: Acute (4) Pulmonary aspiration: Status: Acute (5) Cardiac arrest: Status: Acute (6) 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: Status: Acute Plan Assessment: 37-year-old gentleman with underlying spastic quadriplegia [place]imber[place] fair to cerebral palsy admitted after an out of hospital cardiac arrest secondary to pulmonary aspiration with unclear down time with returned spontaneous circulation achieved after 3 rounds of CPR Plan: Neuro: Comatose, with no improvement, brain MRI today. Underlying spastic quadriplegia secondary to cerebral palsy. Underlying epilepsy, continue on Keppra. Cardiac: Cardiac arrest secondary to pulmonary aspiration. 2D echocardiogram with normal left-sided ejection fraction. Titrated off vasopressor support. Pulmonary: Acute respiratory failure with pulmonary aspiration intubated during the CPR, improving. Continue with ventilatory support. Renal: Acute renal failure with hypernatremia, likely ATN after cardiac arrest, improving. Continue to monitor renal indices and urine output. Endo: No acute issues. GI: Ischemic hepatitis is improving. ID: Empirically covered for pulmonary aspiration. No evidence for sepsis. Hypotension and organ dysfunction are secondary to cardiac arrest and sedation. Heme/Onc: No acute issues. Psych: No acute issues. Miscellaneous: No acute issues. Prophylaxis: Heparin, ppi Diet: tube feeds Critical care time spent: 45 minutes Quality Stroke Does the patient have a stroke diagnosis?: No VTE Prior VTE?: No VTE Risk Level:: Medical - moderate - high VTE Device Contraindication: Treatment Not Tolerated VTE Drug Contraindication: N/A - Med Ordered
--- NOTE | 2022-09-07 11:01 | MHC.CM.PN ---
Pt continues care in ICU following 3 rounds of CPR after arresting. He is presently vented with poor neuro response. Pt from home with 02/02 clinical care coordinator (brother and family) d/t CP. Initially, the d/c plan was for a return to home with continued supports and VNA however, this may need to be re evaluated once pt is extubated. Pt is totally dependent and non ambulatory at baseline. CM to follow for finalization of d/c plan.
[2022-09-07] MEDS: Acetaminophen Oral Liquid 650 MG/20.3 ML SOLUTION PO (23:37)
[2022-09-08] VITALS (36 sets, daily range): BP systolic 84–126; BP diastolic 42–80; PULSE 108–155; RESP 13–43; TEMP 34.5–38.5; O2SAT 92–100; BMI 13.5
[2022-09-08 00:34] LABS: Venous Blood Gas Refer to POC result
--- NOTE | 2022-09-08 03:13 | PC.NURSE ---
PT REMAINS ON AC VENT SETTINGS. NO RESP DIFFICULTIES. BREATHING OVER VENT. SUCTIONING SMALL AMOUNT OF THICK CREAM COLORED SECTRETIONS VIA ETT. NO COUGH OR GAG REFLEX NOTED. PT IS UNRESPONSIVE TO VERBAL OR PAINFUL STIMULI. NO CORNEAL REFLEX. OPENS EYES SPONTANEOUSLY. NO TRACKING. PUPILS 3MM RTL. BP BPORDERLINE. SBP 90'S- LOW 100'S, MAP 58-60'S. PROVIDER AWARE. PT RECEIVING ALBUMIN X4 BAGS. MONITOR:ST, 120'S. TEMP LOW GRADE 99.4-100.4 CORE. TYLENOL GIVEN VIA OGT. COOLING BLANKET OFF AT THIS TIME. TOLERATING TUBE FEEDS ORDERED. TURNED AND REPOS Q2HR. FAMILY AT BEDSIDE AND SPOKE TO PROVIDER REGARDING PT'S STATUS.
[2022-09-08] MEDS: Ampicillin Sodium/Sulbactam Na 1.5 GM in 0.9 % Sodium Chloride 100 ML IV ×2 (03:52→15:00)
[2022-09-08] MEDS: Albumin Human 25 % 100 ML IV (03:52)
[2022-09-08 05:09] LABS: VBG Base Excess 0.1 mmol/L; VBG HCO3 24 mmol/L (22-26); VBG pCO2 35 mmHg; VBG pH 7.43 (7.32-7.43); VBG pO2 61 mmHg
[2022-09-08 05:12] LABS: Mean Corpuscular HGB Conc 31.4 g/dl (31.0-36.0); Mean Corpuscular Volume 92.5 fL (80.0-98.0); Mean Platelet Volume 12.5 fL (9.4-12.4); Red Cell Distribution Width 17.2 % (11.0-16.0); Venous Blood Gas Refer to POC result; White Blood Count 13.7 X10*3/uL (4.8-10.8)
[2022-09-08 05:25] LABS: NRBC Pct Auto 1.8 /100WBC (0.0-0.2); Platelet Count 98 X10*3/uL (160-400)
[2022-09-08 05:27] LABS: Anion Gap 21 (12-20); Blood Urea Nitrogen 44 mg/dL (9-16); Calcium 6.7 mg/dL (8.4-10.2); Carbon Dioxide 16 mmol/L (22-29); Chloride 121 mmol/L (96-108); Creatinine Clr Calc Pharmacy 37.8; Estimated Glomerular Filt Rate > 60; Glucose Random 127 mg/dL (60-115); Magnesium 1.6 mg/dL (1.6-2.6); Phosphorus 3.4 mg/dL (2.7-4.5); Potassium 3.6 mmol/L (3.3-5.1); Sodium 154 mmol/L (135-145)
[2022-09-08 05:31] LABS: Hemoglobin 5.8 g/dl (14.0-18.0)
[2022-09-08 05:32] LABS: Hematocrit 18.5 % (42.0-52.0)
[2022-09-08 05:36] LABS: Band Neutrophils Percent 4 % (3-5); Monocytes Absolute Manual 0.1 X10*3/uL (0.1-1.2); Monocytes Percent Manual 1 % (2-11); Nucleated Red Blood Cells 1 /100WBC (0-0)
[2022-09-08 05:37] LABS: Lymphocytes Absolute Manual 2.7 X10*3/uL (1.2-4.9); Lymphocytes Percent Manual 20 % (20-40); Neutrophils Absolute Manual 10.8 X10*3/uL (2.0-8.3); Neutrophils Percent Manual 75 % (45-73)
[2022-09-08 05:38] LABS: Macrocytosis 1+ (5-14) /OIF; RBC Morphology NOTED
[2022-09-08 05:39] LABS: Basophilic Stippling 1+ (0-2) /OIF; Dohle Bodies PRESENT; Hypochromasia 1+ (5-14) /OIF; Stomatocytes 1+ (5-14) /OIF; Toxic Granulation PRESENT
[2022-09-08 05:40] LABS: Large Platelet PRESENT; Platelet Estimate DECREASED (NORMAL); Platelet Morphology Comment NOTED
[2022-09-08 05:48] LABS: Mean Corpuscular HGB Conc 32.8 g/dl (31.0-36.0); Mean Corpuscular Hemoglobin 29.3 pg (27.0-33.0); Mean Corpuscular Volume 89.3 fL (80.0-98.0); Mean Platelet Volume 12.1 fL (9.4-12.4); Red Blood Count 2.05 X10*6/uL (4.60-5.80); White Blood Count 14.3 X10*3/uL (4.8-10.8)
[2022-09-08 05:59] LABS: Platelet Count 94 X10*3/uL (160-400)
[2022-09-08 06:00] LABS: Hematocrit 18.3 % (42.0-52.0)
[2022-09-08] MEDS: Calcium Gluconate/NaCl,Iso-Osm 2 GM/100 ML PLAST..BAG IV (06:06)
[2022-09-08 06:09] LABS: Band Neutrophils Percent 5 % (3-5); Lymphocytes Absolute Manual 3.3 X10*3/uL (1.2-4.9); Lymphocytes Percent Manual 23 % (20-40); Neutrophils Percent Manual 72 % (45-73); Nucleated Red Blood Cells 2 /100WBC (0-0)
[2022-09-08] MEDS: Heparin Sodium,Porcine 5,000 UNIT/ML VIAL 5000 UNIT SUBCUT ×2 (06:10→15:00)
[2022-09-08 06:11] LABS: Basophilic Stippling 1+ (0-2) /OIF; Dohle Bodies PRESENT; Hypochromasia 1+ (5-14) /OIF; Macrocytosis 1+ (5-14) /OIF; Platelet Estimate DECREASED (NORMAL); Platelet Morphology Comment NOTED; RBC Morphology NOTED; Stomatocytes 1+ (5-14) /OIF; Toxic Granulation PRESENT
[2022-09-08 06:12] LABS: Large Platelet PRESENT; Schistocytes 1+ (0-2) /OIF
[2022-09-08] MEDS: Famotidine/PF 20 MG/2 ML VIAL IVPUSH (08:50)
[2022-09-08] MEDS: Chlorhexidine Gluc Oral Rinse 15 ML MOUTHWASH BUCCAL ×3 (08:50→21:31)
[2022-09-08] MEDS: levETIRAcetam in NaCl (iso-os) 500 MG/100 ML PIGGYBACK 400 MG IV ×2 (08:51→21:31)
--- NOTE | 2022-09-08 09:48 | PM.CCPN ---
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 Post CPR echo essentially normal. However, still with no significant improvement in neurologic status or renal function. MRI brain on 09/07/2022 demonstrating severe anoxic injury. Family is considering goals of care. No events overnight. Critical Care Time (minutes): 30 Physical Exam Vital Signs: Vital Signs: Last Vital Signs Temp 100.2 F 09/08/22 09:00 Pulse 114 H 09/08/22 09:00 Resp 40 H 09/08/22 09:00 BP 99/62 09/08/22 09:00 Pulse Ox 99 09/08/22 09:00 O2 Del Method 09/08/22 09:00 FiO2 30 09/08/22 09:00 BMI result Body Mass Index 13.5 Const: General: other (comatose, spastic quadriplegia with contractures) Eyes: Sclerae: sclerae normal Pupils: Pinpoint pupils ( Nonreactive) bilaterally Neck: Neck: Yes no lymphadenopathy, Yes trachea midline and Yes supple Resp: Auscultation: clear to auscultation bilaterally Cardio: Rate: tachycardic Rhythm: regular rhythm Heart sounds: no gallops, no murmurs and no rubs GI: Palpation (GI): Soft to palpation and Other GI palpation findings present ( Nontender) Auscultation: normal bowel sounds Extrem: General: No clubbing and No cyanosis Objective Data Labs 09/08/22 05:40 09/08/22 04:55 Labs: Laboratory Results - last 24 hr 09/07/22 09/08/22 09/08/22 08:49 04:55 04:55 WBC 13.7 H RBC 2.00 L Hgb 5.8 L* D Hct 18.5 L* D MCV 92.5 MCH 29.0 MCHC 31.4 RDW 17.2 H Plt Count 98 L MPV 12.5 H Immature Gran % (Auto) Cancelled Neut % (Auto) Cancelled Lymph % (Auto) Cancelled [place] % (Auto) Cancelled Eos % (Auto) Cancelled Baso % (Auto) Cancelled Lymph # (Auto) Cancelled [place] # (Auto) Cancelled Eos # (Auto) Cancelled Baso # (Auto) Cancelled Abs Immat Gran (auto) Cancelled Absolute Neuts (auto) Cancelled Absolute Nucleated RBC 0.240 H Nucleated RBC % (auto) 1.8 H Neutrophils % (Manual) 75 H Band Neutrophils % 4 Lymphocytes % (Manual) 20 Monocytes % (Manual) 1 L Abs Neuts (Manual) 10.8 H Lymphocytes # (Manual) 2.7 Monocytes # (Manual) 0.1 Nucleated RBCs 1 H Toxic Granulation PRESENT Dohle Bodies PRESENT Platelet Estimate DECREASED Large Platelets PRESENT Plt Morphology Comment NOTED RBC Morphology NOTED Hypochromasia 1+ (5-14) Basophilic Stippling 1+ (0-2) Macrocytosis 1+ (5-14) Stomatocytes 1+ (5-14) Schistocytes VBG pH VBG pCO2 VBG pO2 VBG HCO3 VBG O2 Saturation VBG Base Excess Sodium 154 H Potassium 3.6 Chloride 121 H Carbon Dioxide 16 L Anion Gap 21 H BUN 44 H Creatinine 1.27 Estim Creat Clear Calc 37.8 Estimated GFR > 60 Random Glucose 127 H Calcium 6.7 L Phosphorus 3.4 Magnesium 1.6 Albumin 4.0 Blood Type O Positive Antibody Screen NEGATIVE Crossmatch See Detail 09/08/22 09/08/22 05:02 05:40 WBC 14.3 H RBC 2.05 L Hgb 6.0 L* Hct 18.3 L* MCV 89.3 MCH 29.3 MCHC 32.8 RDW 17.0 H Plt Count 94 L MPV 12.1 Immature Gran % (Auto) Cancelled Neut % (Auto) Cancelled Lymph % (Auto) Cancelled [place] % (Auto) Cancelled Eos % (Auto) Cancelled Baso % (Auto) Cancelled Lymph # (Auto) Cancelled [place] # (Auto) Cancelled Eos # (Auto) Cancelled Baso # (Auto) Cancelled Abs Immat Gran (auto) Cancelled Absolute Neuts (auto) Cancelled Absolute Nucleated RBC 0.280 H Nucleated RBC % (auto) 2.0 H Neutrophils % (Manual) 72 Band Neutrophils % 5 Lymphocytes % (Manual) 23 Monocytes % (Manual) Abs Neuts (Manual) 11.0 H Lymphocytes # (Manual) 3.3 Monocytes # (Manual) Nucleated RBCs 2 H Toxic Granulation PRESENT Dohle Bodies PRESENT Platelet Estimate DECREASED Large Platelets PRESENT Plt Morphology Comment NOTED RBC Morphology NOTED Hypochromasia 1+ (5-14) Basophilic Stippling 1+ (0-2) Macrocytosis 1+ (5-14) Stomatocytes 1+ (5-14) Schistocytes 1+ (0-2) VBG pH 7.43 VBG pCO2 35 VBG pO2 61 VBG HCO3 24 VBG O2 Saturation 88.0 VBG Base Excess 0.1 Sodium Potassium Chloride Carbon Dioxide Anion Gap BUN Creatinine Estim Creat Clear Calc Estimated GFR Random Glucose Calcium Phosphorus Magnesium Albumin Blood Type Antibody Screen Crossmatch Microbiology Microbiology Results: Microbiology 09/07/22 06:26 Blood - Venous Blood Culture - Preliminary Prelim: Yeast Gram Stain only 09/07/22 00:55 Blood - Venous Blood Culture - Preliminary No growth after 24 hours. 09/04/22 14:53 Blood - Venous Blood Culture - Preliminary Prelim: GPR Gram Stain only 09/04/22 15:11 Blood - Venous Blood Culture - Preliminary Prelim: GPR Gram Stain only 09/04/22 15:11 Blood - Venous Blood Culture - Preliminary Prelim: GPR Gram Stain only Progress Note: A&P Assessment and plan (1) Anoxic brain injury: Status: Acute (2) Acute respiratory failure with hypoxia: Status: Acute (3) Severe protein-calorie malnutrition: Status: Acute (4) Cardiac arrest: Status: Acute (5) 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: Status: Acute (6) Epilepsy: Status: Acute Plan Assessment: 37-year-old gentleman with underlying spastic quadriplegia secondary to cerebral palsy admitted after an out of hospital cardiac arrest secondary to pulmonary aspiration with unclear down time with returned spontaneous circulation achieved after 3 rounds of CPR Plan: Neuro: Comatose, with severe anoxic injury on brain MRI 09/07/2022. Underlying spastic quadriplegia secondary to cerebral palsy. Underlying epilepsy, continue on Keppra. Family is considering goals of care. Cardiac: Cardiac arrest secondary to pulmonary aspiration. 2D echocardiogram with normal left-sided ejection fraction. Titrated off vasopressor support. Pulmonary: Acute respiratory failure with pulmonary aspiration intubated during the CPR, improving. Continue with ventilatory support. Renal: Acute renal failure with hypernatremia, likely ATN after cardiac arrest, improving. Continue to monitor renal indices and urine output. Endo: No acute issues. GI: Ischemic hepatitis resolved. ID: Gram-positive bacteremia with identification pending, continue on broad-spectrum antibiotics. Heme/Onc: Dilutional anemia status post transfusion of 1 unit of packed red blood cells. Continue to monitor hemoglobin level. Psych: No acute issues. Miscellaneous: No acute issues. Prophylaxis: Heparin, ppi Diet: tube feeds Critical care time spent: 30 minutes Quality Stroke Does the patient have a stroke diagnosis?: No VTE Prior VTE?: No VTE Risk Level:: Medical - moderate - high VTE Device Contraindication: Treatment Not Tolerated VTE Drug Contraindication: N/A - Med Ordered
--- NOTE | 2022-09-08 10:29 | MHC.CLN ---
F/U PT IS SEVERELY MALNOURISHED SEE FULL CLINICAL NUTRITION ASSESSMENT DATED 09/05/22 PT REMAINS INTUBATED AND SEDATED PT RECEIVING PROMOTE AT MAX GOAL RATE 30ML/HR WITH 240ML FREE WATER FLUSHES Q 6 HRS PROVIDES 720KCALS (25KCALS/KG), 45G PROTEIN (1.6G/KG), 1564ML TOTAL WATER FROM FORMULA AND FLUSHES (43.8ML/KG) TF APPROPRIATE TO PROMOTE SLOW WOUND HEALING MONITOR TOLERANCE, RESIDUALS AND LYTES
[2022-09-08] MEDS: Acetaminophen Oral Liquid 650 MG/20.3 ML SOLUTION PO ×2 (11:44→21:31)
--- NOTE | 2022-09-08 16:22 | MHC.CM.PN ---
Pt to be terminally weaned once all family has had an opportunity to visit
--- NOTE | 2022-09-08 21:39 | W.MHC.ACPN ---
Advanced Care Planning Note Advanced Care Planning Note Discussed with: family member(s) (mother and pts brother ) Time spent (in minutes): 75 Narrative: I had a 1 hour long discussion with the patient's mother and patient's brother who are at bedside.? They seemed to have a lot of questions regarding the patient's current health, although to my knowledge a lot of these were answered by Dr. Singer; they wanted to understand it all over again in a detailed manner, so I explained it all again in their [place] language Portuguese. We reviewed the patient's quality of live in detail up to these current hospitalization and events, patient's laboratories findings, images and prognosis.? I did my best to explain to them in simple words and not medical terminology which they seem to understand very well and appeared to be satisfied with my answers. After all these, they now seem to understand the whole clinical scenario and are willing to make the patient DNR including no further aggressive measures if the patient was to have any type of further cardiopulmonary complications. ?For now will continue with current care but will not escalate anything. They are waiting for family members to arrive from [place] and [place] I which point and once the family is able to gather and say their goodbyes, they will be ready to remove the endotracheal tube, they are 100% aware that this will lead to demise, but they understand that this will be done in a humane and non suffering way. I explained to them that once the tube is removed, all medical efforts will be stopped and the patient will be made comfortable for which we will administer medications like morphine, Versed or Ativan and or S scopolamine or other medications that might be necessary to make the patient comfortable and allow him to pass to a better life in a humane a non suffering way. Both the mother and the brother appeared to understand, they were able to verbalize this back to me and also stated this back in [place] to the patient's nurse who served as a witness of this conversation and decision (Juana MORRIS). ?At this point, his code status will be changed to do not resuscitate, no more invasive procedures; in the near future a terminal extubation will be performed. Case discussed with Dr. Singer. A total of 75 minutes were spent during this meeting, direct contact with the patient's family at bedside as well as this documentation. 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
[2022-09-09] VITALS (30 sets, daily range): BP systolic 85–140; BP diastolic 42–77; PULSE 101–127; RESP 15–40; TEMP 34.5–38.8; O2SAT 95–100; BMI 13.4
[2022-09-09] MEDS: Heparin Sodium,Porcine 5,000 UNIT/ML VIAL 5000 UNIT SUBCUT ×4 (00:14→22:14)
[2022-09-09 04:57] LABS: VBG Base Excess -3.9 mmol/L; VBG HCO3 18 mmol/L (22-26); VBG pCO2 24 mmHg; VBG pH 7.48 (7.32-7.43); VBG pO2 58 mmHg
[2022-09-09 04:58] LABS: Venous Blood Gas Refer to POC result
[2022-09-09] MEDS: Ampicillin Sodium/Sulbactam Na 1.5 GM in 0.9 % Sodium Chloride 100 ML IV ×4 (05:10→19:36)
[2022-09-09 05:33] LABS: Hematocrit 28.6 % (42.0-52.0); Hemoglobin 9.6 g/dl (14.0-18.0); Mean Corpuscular HGB Conc 33.6 g/dl (31.0-36.0); Mean Corpuscular Hemoglobin 28.7 pg (27.0-33.0); Mean Corpuscular Volume 85.4 fL (80.0-98.0); Mean Platelet Volume 12.9 fL (9.4-12.4); Platelet Count 134 X10*3/uL (160-400); Red Blood Count 3.35 X10*6/uL (4.60-5.80); Red Cell Distribution Width 16.1 % (11.0-16.0); White Blood Count 15.2 X10*3/uL (4.8-10.8)
[2022-09-09 05:53] LABS: Anion Gap 14 (12-20); Blood Urea Nitrogen 38 mg/dL (9-16); Calcium 7.3 mg/dL (8.4-10.2); Carbon Dioxide 20 mmol/L (22-29); Chloride 120 mmol/L (96-108); Creatinine Clr Calc Pharmacy 48.9; Estimated Glomerular Filt Rate > 60; Glucose Random 88 mg/dL (60-115); Magnesium 1.5 mg/dL (1.6-2.6); Phosphorus 2.2 mg/dL (2.7-4.5); Potassium 3.3 mmol/L (3.3-5.1); Sodium 151 mmol/L (135-145)
[2022-09-09 06:05] LABS: Band Neutrophils Percent 7 % (3-5); Eosinophils Absolute Manual 0.2 X10*3/uL (0.0-0.4); Eosinophils Percent Manual 1 % (0-4); Lymphocytes Absolute Manual 5.2 X10*3/uL (1.2-4.9); Lymphocytes Percent Manual 34 % (20-40); Monocytes Absolute Manual 0.5 X10*3/uL (0.1-1.2); Monocytes Percent Manual 3 % (2-11); Neutrophils Absolute Manual 9.4 X10*3/uL (2.0-8.3); Neutrophils Percent Manual 55 % (45-73); Nucleated Red Blood Cells 5 /100WBC (0-0)
[2022-09-09 06:06] LABS: Burr Cells 1+ (0-2) /OIF; Macrocytosis 1+ (5-14) /OIF; RBC Morphology NOTED
[2022-09-09 06:08] LABS: Dohle Bodies PRESENT; Large Platelet PRESENT; Platelet Estimate SLIGHTLY DECREASED (NORMAL); Platelet Morphology Comment NOTED; Target Cells 1+ (5-14) /OIF; Toxic Granulation PRESENT
[2022-09-09 06:09] LABS: Polychromasia 1+ (0-2) /OIF; Schistocytes 1+ (0-2) /OIF
[2022-09-09] MEDS: Acetaminophen Oral Liquid 650 MG/20.3 ML SOLUTION PO ×2 (07:37→17:35)
[2022-09-09] MEDS: Famotidine/PF 20 MG/2 ML VIAL IVPUSH (07:38)
[2022-09-09] MEDS: Chlorhexidine Gluc Oral Rinse 15 ML MOUTHWASH BUCCAL ×3 (07:38→19:36)
[2022-09-09] MEDS: levETIRAcetam in NaCl (iso-os) 500 MG/100 ML PIGGYBACK 400 MG IV ×2 (08:07→19:36)
[2022-09-09] MEDS: Magnesium Sulfate/H2O 2 GM/50 ML PIGGYBACK IV (09:24)
[2022-09-09] MEDS: Potassium Phosphate/NS 15 MMOL/250 ML PLAST..BAG 62.5 MMOL IV (09:33)
[2022-09-09] MEDS: Fluconazole in NaCl,Iso-Osm 400 MG/200 ML PIGGYBACK 100 MG IV ×2 (09:40→11:52)
--- NOTE | 2022-09-09 09:47 | P.PNCC_ITS ---
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 Post CPR echo essentially normal. However, still with no significant improvement in neurologic status or renal function. MRI brain on 09/07/2022 demonstrating severe anoxic injury. Family is considering goals of care. No events overnight. Critical Care Time (minutes): 30 Physical Exam Vital Signs: Vital Signs: Last Vital Signs Temp 99.9 F 09/09/22 09:00 Pulse 120 H 09/09/22 09:00 Resp 35 H 09/09/22 09:00 BP 107/62 09/09/22 09:00 Pulse Ox 98 09/09/22 09:00 O2 Del Method 09/09/22 09:00 FiO2 30 09/09/22 09:00 BMI result Body Mass Index 13.4 Const: General: other ( Comatose, spastic quadriplegia) Eyes: Sclerae: sclerae normal Pupils: Fixed pupils and Pinpoint pupils Neck: Neck: Yes no lymphadenopathy, Yes trachea midline and Yes supple Resp: Auscultation: clear to auscultation bilaterally Cardio: Rate: tachycardic Rhythm: regular rhythm Heart sounds: no gallops, no murmurs and no rubs GI: Palpation (GI): Soft to palpation and Other GI palpation findings present ( Nontender) Auscultation: normal bowel sounds Extrem: General: No clubbing and No cyanosis Objective Data Labs 09/09/22 04:51 09/09/22 04:51 Labs: Laboratory Results - last 24 hr 09/07/22 09/09/22 09/09/22 08:49 04:49 04:51 WBC 15.2 H RBC 3.35 L D Hgb 9.6 L D Hct 28.6 L D MCV 85.4 MCH 28.7 MCHC 33.6 RDW 16.1 H Plt Count 134 L D MPV 12.9 H Immature Gran % (Auto) Cancelled Neut % (Auto) Cancelled Lymph % (Auto) Cancelled [place] % (Auto) Cancelled Eos % (Auto) Cancelled Baso % (Auto) Cancelled Lymph # (Auto) Cancelled [place] # (Auto) Cancelled Eos # (Auto) Cancelled Baso # (Auto) Cancelled Abs Immat Gran (auto) Cancelled Absolute Neuts (auto) Cancelled Absolute Nucleated RBC 0.460 H Nucleated RBC % (auto) 3.0 H Neutrophils % (Manual) 55 Band Neutrophils % 7 H Lymphocytes % (Manual) 34 Monocytes % (Manual) 3 Eosinophils % (Manual) 1 Abs Neuts (Manual) 9.4 H Lymphocytes # (Manual) 5.2 H Monocytes # (Manual) 0.5 Eosinophils # (Manual) 0.2 Nucleated RBCs 5 H Toxic Granulation PRESENT Dohle Bodies PRESENT Platelet Estimate SLIGHTLY DECREASED Large Platelets PRESENT Plt Morphology Comment NOTED RBC Morphology NOTED Polychromasia 1+ (0-2) Macrocytosis 1+ (5-14) Target Cells 1+ (5-14) [place] Cells 1+ (0-2) Schistocytes 1+ (0-2) VBG pH 7.48 H VBG pCO2 24 VBG pO2 58 VBG HCO3 18 L VBG O2 Saturation 88.0 VBG Base Excess -3.9 Sodium Potassium Chloride Carbon Dioxide Anion Gap BUN Creatinine Estim Creat Clear Calc Estimated GFR Random Glucose Calcium Phosphorus Magnesium Albumin Crossmatch See Detail 09/09/22 04:51 WBC RBC Hgb Hct MCV MCH MCHC RDW Plt Count MPV Immature Gran % (Auto) Neut % (Auto) Lymph % (Auto) [place] % (Auto) Eos % (Auto) Baso % (Auto) Lymph # (Auto) [place] # (Auto) Eos # (Auto) Baso # (Auto) Abs Immat Gran (auto) Absolute Neuts (auto) Absolute Nucleated RBC Nucleated RBC % (auto) Neutrophils % (Manual) Band Neutrophils % Lymphocytes % (Manual) Monocytes % (Manual) Eosinophils % (Manual) Abs Neuts (Manual) Lymphocytes # (Manual) Monocytes # (Manual) Eosinophils # (Manual) Nucleated RBCs Toxic Granulation Dohle Bodies Platelet Estimate Large Platelets Plt Morphology Comment RBC Morphology Polychromasia Macrocytosis Target Cells [place] Cells Schistocytes VBG pH VBG pCO2 VBG pO2 VBG HCO3 VBG O2 Saturation VBG Base Excess Sodium 151 H Potassium 3.3 Chloride 120 H Carbon Dioxide 20 L Anion Gap 14 BUN 38 H Creatinine 1.03 Estim Creat Clear Calc 48.9 Estimated GFR > 60 Random Glucose 88 Calcium 7.3 L D Phosphorus 2.2 L Magnesium 1.5 L Albumin 3.0 L Crossmatch Microbiology Microbiology Results: Microbiology 09/07/22 06:26 Blood - Venous Blood Culture - Preliminary Prelim: Yeast Gram Stain only 09/04/22 15:11 Blood - Venous Blood Culture - Preliminary Gram positive olivia 09/04/22 15:11 Blood - Venous Blood Culture - Preliminary Gram positive olivia 09/04/22 14:53 Blood - Venous Blood Culture - Preliminary Gram positive olivia 09/07/22 00:55 Blood - Venous Blood Culture - Preliminary Prelim: Yeast Gram Stain only Progress Note: A&P Assessment and plan (1) Anoxic brain injury: Status: Acute (2) Acute respiratory failure with hypoxia: Status: Acute (3) Severe protein-calorie malnutrition: Status: Acute (4) Pulmonary aspiration: Status: Acute (5) Cardiac arrest: Status: Acute (6) 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: Status: Acute (7) Epilepsy: Status: Acute Plan Assessment: 37-year-old gentleman with underlying spastic quadriplegia s econdary to cerebral palsy admitted after an out of hospital cardiac arrest secondary to pulmonary aspiration with unclear down time with returned spontaneous circulation achieved after 3 rounds of CPR Plan: Neuro: Comatose, with severe anoxic injury on brain MRI 09/07/2022. Underlying spastic quadriplegia secondary to cerebral palsy. Underlying epilepsy, continue on Keppra. Family is considering goals of care. Cardiac: Cardiac arrest secondary to pulmonary aspiration. 2D echocardiogram with normal left-sided ejection fraction. Titrated off vasopressor support. Pulmonary: Acute respiratory failure with pulmonary aspiration intubated during the CPR, improving. Continue with ventilatory support. Renal: Acute renal failure with hypernatremia, likely ATN after cardiac arrest, improving. Continue to monitor renal indices and urine output. Endo: No acute issues. GI: Ischemic hepatitis resolved. ID: Gram-positive olivia bacteremia with identification still pending also most r ecent cultures positive for Hoda, initial rods are likely also misidentified fungal elements, fluconazole added. Continue on broad-spectrum antibiotics. Heme/Onc: Dilutional anemia status post transfusion of 1 unit of packed red blood cells. Continue to monitor hemoglobin level. Psych: No acute issues. Miscellaneous: No acute issues. Prophylaxis: Heparin, ppi Diet: tube feeds Critical care time spent: 30 minutes Quality Stroke Does the patient have a stroke diagnosis?: No VTE Prior VTE?: No VTE Risk Level:: Medical - moderate - high VTE Device Contraindication: Treatment Not Tolerated VTE Drug Contraindication: N/A - Med Ordered
[2022-09-10] VITALS (30 sets, daily range): BP systolic 93–154; BP diastolic 48–80; PULSE 92–130; RESP 21–50; TEMP 34.5–39; O2SAT 95–100; BMI 14.2
[2022-09-10] MEDS: Ampicillin Sodium/Sulbactam Na 1.5 GM in 0.9 % Sodium Chloride 100 ML IV ×3 (02:21→14:39)
[2022-09-10] MEDS: Acetaminophen Oral Liquid 650 MG/20.3 ML SOLUTION PO ×2 (02:21→11:15)
--- NOTE | 2022-09-10 03:32 | PC.NURSE ---
Addendum entered by Dandre Woods RN 09/10/22 05:15: CURRENT TEMP= 98.1 RR 28-30 HR 106 Original Note: CARE ASSUMED 23:15..REMAINS TUBED/VENTED...VCV VENT SUPPORT...RECEIVING NO SEDATION...REMAINS UNRESPONSIVE...NO GAG/COUGH/CORNEAL REFLEXES...EYES OPEN SPONTANEOUSLY AT TIMES WITH EYES DEVIATED UPWARDS...EXTREMETIES FLACCID...SINUS TACHYCARDIA HR 130-132...RR 34-38 ON AC VENT SUPPORT...T-MAX 102.2...TYLENOL 650MG VIA OG-TUBE..TEMP CURRENTLY 100.5...HR/RR UNCHANGED...CURRENT FLUID BALANCE SINCE ADMIT = APPROX 16-17 LITERS (+)...ICU PA AWARE...NO ESCALATION OF CARE..AWAITING FINAL FAMILY MEMBERS TO ARRIVE AND THEN PLANNED TERMINAL EXTUBATION PER ICU PA
[2022-09-10 05:02] LABS: VBG HCO3 18 mmol/L (22-26); VBG pCO2 28 mmHg; VBG pH 7.41 (7.32-7.43); VBG pO2 54 mmHg
[2022-09-10 05:06] LABS: Venous Blood Gas Refer to POC result
[2022-09-10 05:19] LABS: Hematocrit 28.8 % (42.0-52.0); Hemoglobin 9.7 g/dl (14.0-18.0); Mean Corpuscular HGB Conc 33.7 g/dl (31.0-36.0); Mean Corpuscular Hemoglobin 29.3 pg (27.0-33.0); Mean Platelet Volume 12.4 fL (9.4-12.4); NRBC Pct Auto 2.2 /100WBC (0.0-0.2); Platelet Count 193 X10*3/uL (160-400); Red Blood Count 3.31 X10*6/uL (4.60-5.80); Red Cell Distribution Width 16.6 % (11.0-16.0); White Blood Count 20.2 X10*3/uL (4.8-10.8)
[2022-09-10 05:35] LABS: Albumin Level 2.7 g/dL (3.5-5.0); Anion Gap 16 (12-20); Blood Urea Nitrogen 28 mg/dL (9-16); Calcium 7.7 mg/dL (8.4-10.2); Carbon Dioxide 21 mmol/L (22-29); Chloride 117 mmol/L (96-108); Creatinine Clr Calc Pharmacy 57.2; Estimated Glomerular Filt Rate > 60; Glucose Random 108 mg/dL (60-115); Magnesium 1.8 mg/dL (1.6-2.6); Sodium 151 mmol/L (135-145)
[2022-09-10 05:43] LABS: Band Neutrophils Percent 10 % (3-5); Eosinophils Absolute Manual 0.2 X10*3/uL (0.0-0.4); Eosinophils Percent Manual 1 % (0-4); Lymphocytes Absolute Manual 2.8 X10*3/uL (1.2-4.9); Lymphocytes Percent Manual 14 % (20-40); Macrocytosis 1+ (5-14) /OIF; Metamyelocytes Absolute 0.2 X10*3/uL; Metamyelocytes Percent 1 %; Neutrophils Percent Manual 74 % (45-73); Nucleated Red Blood Cells 4 /100WBC (0-0); RBC Morphology NOTED
[2022-09-10 05:44] LABS: Burr Cells 1+ (0-2) /OIF; Dohle Bodies PRESENT; Large Platelet PRESENT; Platelet Estimate SLIGHTLY DECREASED (NORMAL); Platelet Morphology Comment NORMAL; Polychromasia 1+ (0-2) /OIF; Smudge Cells PRESENT; Target Cells 1+ (5-14) /OIF
[2022-09-10] MEDS: Heparin Sodium,Porcine 5,000 UNIT/ML VIAL 5000 UNIT SUBCUT ×2 (07:51→14:39)
[2022-09-10] MEDS: Chlorhexidine Gluc Oral Rinse 15 ML MOUTHWASH BUCCAL ×2 (08:10→14:39)
[2022-09-10] MEDS: levETIRAcetam in NaCl (iso-os) 500 MG/100 ML PIGGYBACK 400 MG IV (08:10)
[2022-09-10] MEDS: Famotidine/PF 20 MG/2 ML VIAL IVPUSH (08:10)
[2022-09-10] MEDS: Potassium Chloride/H20 40 MEQ/100 ML PIGGYBACK 100 MEQ IV (08:26)
--- NOTE | 2022-09-10 09:05 | MHC.CLN ---
F/U PT REMAINS INTUBATED AND SEDATED PT RECEIVING PROMOTE AT MAX GOAL RATE 30ML/HR WITH 240ML FREE WATER FLUSHES Q 6 HRS PROVIDES 720KCALS (25KCALS/KG), 45G PROTEIN (1.6G/KG), 1564ML TOTAL WATER FROM FORMULA AND FLUSHES (43.8ML/KG) MONITOR TOLERANCE, RESIDUALS AND LYTES AWAITING FINAL FAMILY MEMBERS TO ARRIVE AND THEN PLANNED TERMINAL EXTUBATION PER ICU PA
--- NOTE | 2022-09-10 09:53 | P.PNCC_ITS ---
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 Post CPR echo essentially normal. However, still with no significant improvement in neurologic status or renal function. MRI brain on 09/07/2022 demonstrating severe anoxic injury. Family is considering goals of care. No events overnight. Critical Care Time (minutes): 30 Physical Exam Vital Signs: Vital Signs: Last Vital Signs Temp 99.3 F 09/10/22 09:00 Pulse 103 H 09/10/22 09:00 Resp 27 H 09/10/22 09:00 BP 126/75 09/10/22 09:00 Pulse Ox 96 09/10/22 09:00 O2 Del Method 09/10/22 09:00 FiO2 30 09/10/22 09:00 BMI result Body Mass Index 14.2 Const: General: other (Spastic quadriplegia, comatose) Eyes: Sclerae: sclerae normal Pupils: Pupils not reactive bilaterally Neck: Neck: Yes no lymphadenopathy, Yes trachea midline and Yes supple Resp: Auscultation: clear to auscultation bilaterally Cardio: Rate: tachycardic Rhythm: regular rhythm Heart sounds: no gallops, no murmurs and no rubs GI: Palpation (GI): Soft to palpation and Other GI palpation findings present ( Nontender) Auscultation: normal bowel sounds Extrem: General: No clubbing, No cyanosis and Yes other (Contracted) Objective Data Labs 09/10/22 04:55 09/10/22 04:55 Labs: Laboratory Results - last 24 hr 09/10/22 09/10/22 09/10/22 04:53 04:55 04:55 WBC 20.2 H RBC 3.31 L Hgb 9.7 L Hct 28.8 L MCV 87.0 MCH 29.3 MCHC 33.7 RDW 16.6 H Plt Count 193 D MPV 12.4 Immature Gran % (Auto) Cancelled Neut % (Auto) Cancelled Lymph % (Auto) Cancelled [place] % (Auto) Cancelled Eos % (Auto) Cancelled Baso % (Auto) Cancelled Lymph # (Auto) Cancelled [place] # (Auto) Cancelled Eos # (Auto) Cancelled Baso # (Auto) Cancelled Abs Immat Gran (auto) Cancelled Absolute Neuts (auto) Cancelled Absolute Nucleated RBC 0.450 H Nucleated RBC % (auto) 2.2 H Neutrophils % (Manual) 74 H Band Neutrophils % 10 H Lymphocytes % (Manual) 14 L Eosinophils % (Manual) 1 Metamyelocytes % 1 Abs Neuts (Manual) 17.0 H Lymphocytes # (Manual) 2.8 Eosinophils # (Manual) 0.2 Metamyelocytes # 0.2 Nucleated RBCs 4 H [place] Cells PRESENT Dohle Bodies PRESENT Platelet Estimate SLIGHTLY DECREASED Large Platelets PRESENT Plt Morphology Comment NORMAL RBC Morphology NOTED Polychromasia 1+ (0-2) Macrocytosis 1+ (5-14) Target Cells 1+ (5-14) [place] Cells 1+ (0-2) VBG pH 7.41 VBG pCO2 28 VBG pO2 54 VBG HCO3 18 L VBG O2 Saturation 84.0 VBG Base Excess -5.0 Sodium 151 H Potassium 3.0 L Chloride 117 H Carbon Dioxide 21 L Anion Gap 16 BUN 28 H Creatinine 0.93 Estim Creat Clear Calc 57.2 Estimated GFR > 60 Random Glucose 108 Calcium 7.7 L Phosphorus 3.0 Magnesium 1.8 Albumin 2.7 L Microbiology Microbiology Results: Microbiology 09/07/22 00:55 Blood - Venous Blood Culture - Preliminary Yeast 09/07/22 06:26 Blood - Venous Blood Culture - Preliminary Yeast 09/04/22 15:11 Blood - Venous Blood Culture - Preliminary Gram positive olivia 09/04/22 15:11 Blood - Venous Blood Culture - Preliminary Gram positive olivia 09/04/22 14:53 Blood - Venous Blood Culture - Preliminary Gram positive olivia Progress Note: A&P Assessment and plan (1) Anoxic brain injury: Status: Acute (2) Severe protein-calorie malnutrition: Status: Acute (3) Pulmonary aspiration: Status: Acute (4) Cardiac arrest: Status: Acute (5) 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: Status: Acute Plan Assessment: 37-year-old gentleman with underlying spastic quadriplegia second jorge to cerebral palsy admitted after an out of hospital cardiac arrest secondary to pulmonary aspiration with unclear down time with returned spontaneous circulation achieved after 3 rounds of CPR Plan: Neuro: Comatose, with severe anoxic injury on brain MRI 09/07/2022. Underlying spastic quadriplegia secondary to cerebral palsy. Underlying epilepsy, continue on Keppra. Family is considering goals of care. Cardiac: Cardiac arrest secondary to pulmonary aspiration. 2D echocardiogram with normal left-sided ejection fraction. Titrated off vasopressor support. Pulmonary: Acute respiratory failure with pulmonary aspiration intubated during the CPR, improving. Continue with ventilatory support. Renal: Acute renal failure with hypernatremia, likely ATN after cardiac arrest, improving. Continue to monitor renal indices and urine output. Endo: No acute issues. GI: Ischemic hepatitis resolved. ID: Gram-positive olivia bacteremia with identification still pending also most recent cultures positive for Hoda, initial GP rods are likely also misidentified fungal elements, fluconazole added. Continue on broad-spectrum antibiotics. Heme/Onc: Dilutional anemia status post transfusion of 1 unit of packed red blood cells. Continue to monitor hemoglobin level. Psych: No acute issues. Miscellaneous: No acute issues. Prophylaxis: Heparin, ppi Diet: tube feeds Critical care time spent: 30 minutes Quality Stroke Does the patient have a stroke diagnosis?: No VTE Prior VTE?: No VTE Risk Level:: Medical - moderate - high VTE Device Contraindication: Treatment Not Tolerated VTE Drug Contraindication: N/A - Med Ordered Critical Care Time Critical Care Time (minutes): 30
--- NOTE | 2022-09-10 16:21 | MHC.CM.PN ---
CM MET WITH FAMILY AT BEDSIDE, COMFORT OFFERED. CLERGY AT BEDSIDE WELL. CM WILL CONT TO FOLLOW
--- NOTE | 2022-09-10 19:58 | W.MHC.ACPN ---
Advanced Care Planning Note Advanced Care Planning Note Discussed with: family member(s) (Mom, brother, ) Time spent (in minutes): 30 Narrative: A follow-up meeting took place today at bedside with the patient's mother, brother, ankles and disability agent all of whom are in the room. Mom expresses that multiple family members have had the chance to comments a their goodbye. There were still wondering if there would be any remote possibility that the patient would improve. Multiple questions were answered in Japanese for better understanding of the current clinical scenario and the previous discussion about comfort measures, cessation of care and terminal extubation. Approximately 30 minutes were spent during this conversation, they understand that we will stop all medications, start fentanyl administration and perform a terminal extubation. All of this was reiterated by the patient's nurse Akosua MORRIS, of family members are in agreement, at this point the patient will be switched to comfort measures and will proceed with a terminal extubation. it is also known that the patient receive last rites. They understand that the patient will be given medications such as fentanyl, Dilaudid, Ativan or Versed and order scopolamine for secretions. Per family members request all of them want to be in the room while this is happening; however later they decided to step out. Total time spent with the family and documentation 35 minutes Case discussed with Dr. Singer Problems Discussed (1) Anoxic brain injury: (2) Severe protein-calorie malnutrition: (3) Pulmonary aspiration: (4) Cardiac arrest: (5) 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:
[2022-09-10] MEDS: fentaNYL citrate/NS 1,000 MCG/100 ML PLAST..BAG 10 MCG IVCONT (20:07)
[2022-09-10] MEDS: Midazolam HCl/PF 2 MG/2 ML VIAL 1 MG IVPUSH ×2 (20:21→20:43)
[2022-09-10] MEDS: HYDROmorphone HCl 1 MG/ML SYRINGE IVPUSH (20:27)
--- NOTE | 2022-09-10 20:30 | PC.NURSE ---
Addendum entered by Akosua Walker RN 09/10/22 21:43: time of 2127 NEOB notified declined all donation. family at bedside. Original Note: Fantasma ROWLEY spoke with family, decision made to place pt on comfort measures and terminally extubate pt, fentynal drip started, pt extubated at 2011
--- NOTE | 2022-09-10 20:46 | PM.CCN ---
Critical Care Event Note Summary Date of Service: 09/10/22 Code activated: No Narrative: This case had a high probability of a clinically significant, sudden, or life threatening deterioration of this patient's condition which required my full and direct attention, intervention and personal management. Critical Care Time (minutes): 45 Comment: After lengthy discussion as previously documented, the patient was made [employer], all medications were shot off, fentanyl drip was started and he was given 100 mcg IV push load just prior to extubation. Patient was extubated by respiratory therapist at 8:12pm; patient's O2 sat immediately dropped to the low 80s and heart rate went up to 150 beats per minute, he appears to be breathing 40-50 breaths per minute. Additional IV pushes of fentanyl were given along with some Versed a. He was suctioned as he has copious amount of secretions, scopolamine patch ordered. After all the above, the patient appears not comfortable, there is no evidence of nonverbal signs of distress, family decided to go back into the room. A detailed explanation had the extubation happened was given to the patient's mother appears to be grieving but acknowledges that the patient appears comfortable. Will continue to monitor until passing. Reason of : Post Cardiac Arrest, Multiorgan Failure, Anoxic Brain Please review history and physical, progress notes, consult and laboratories for details. At?2124 pm asystole was noted on the monitor, however he still had some agonal breathing for a minute or so. ? At this time, the patient has no heartbeat, no palpable pulses, pupils are fixed at 5 mm bilaterally, overall that anterior chamber and cornea of the eyes appear glossy, no spontaneous breathing.? There is no corneal reflexes bilaterally, capillary refill of the fingers and toes is significantly delayed.? Patient was pronounced at?2127 pm. Certificate Completed. [facility] Called by RN.? Total time spent with the patient planning, coordinating, insuring a natural, non suffering and humane passing as well as pronouncement evaluation, and this documentation was 45 minutes. Discussed in detail with Dr. Singer.? He is aware of all the above.
[2022-09-10] MEDS: Scopolamine 1.5 MG PATCH.TD.3 EAR-BEHIND (20:48)
--- NOTE | 2022-09-10 21:31 | P.DS_ITS ---
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 Cause of : Multi organ failure status post cardiopulmonary arrest with severe anoxic brain injury ? Time and date of : Patient was pronounced at 928 p.m. on 09/10/2022 ? HPI/hospital course: This unfortunate 37-year-old gentleman with underlying history of spastic quadriplegia secondary to cerebral palsy with contractures of multiple joints, muscle wasting, protein calorie malnutrition syndrome among others presented to the hospital on 09/04/2022 after a outside hospital cardiac arrest in the setting of a witness episode of choking and aspiration with unclear down time and ROSC in the emergency room after 3 rounds of CPR and intubation which happened during CPR. Initial imaging her revealed diffuse pulmonary airspace disease with findings which could include diffuse edema, infection or ARDS all of which was new in comparison to prior study; however clinically and after the events is likely represent a significant aspiration pneumonia. ? Patient's mother reported the patient had been awake, sitting in being fed on the day of the event, she turned away for a few seconds to grab something next thing she knew, she noted he was no longer responding to her, staring at the wall, search of gasping for air and she was concerned that he was choking for he would normally not chew his food but rather just swallow therefore any him that they gave him would be in a pureed form with honey thick liquids. ?Upon noting this, immediately they called the ambulance but they were unable to give a specific time frames given the significant anxiety caused by the events. ? Patient had a left IJ central venous catheter placement.? It is noted that the patient did not show any signs of waking up after ROSC was gained however hypothermia protocol was started and his anti seizure medication was continued.? He was given IV fluids, covered empirically for aspiration pneumonia with Unasyn, placed on heparin PPI for DVT and GI prophylaxis respectively. With IV hydration his hypernatremia symptom improved however his renal indices never really went back to normal, neither his neurological status as there was no improvement or responsiveness since initial event despite of not having had him on any sedation agents. ? On 09/07/2022 an MRI of the brain without contrast was done with the following impression IMPRESSION: Findings are consistent with severe hypoxic ischemic injury in the setting of cardiac arrest. In addition to these findings there are multiple congenital and or chronic abnormalities including extensive polymicrogyria involving both frontal lobes and global loss of parenchymal volume resulting in ex vacuo enlargement of the lateral ventricles and widening of the Sylvian fissures. ? At this point, Dr. Singer had started conversations with the family about goals of care and advanced directives but the family seemed slightly resistant to the idea that this would be happening, understandably so. ? On 09/08/2022 I had a prolonged meeting with the patient's mother, brother during which time was spent significant amount of time reviewing the patient's events, current clinical scenario and possible prognosis in the setting of all findings, they understood that the patient's prognosis was poor and they simply seemed a little bit overwhelmed and frustrated with how fast everything had happened specially after the fact that they had a recent of other family members and some others during the same dates that this occurred. Nevertheless they seem to understand at the time and the patient was made DNR, DNI, the possibility of comfort measures and terminal extubation was entertained with them and they agreed however at the time day 1 it to have family members arrive from other state and even from [place] before they could make a final decision and be ready for these as they understand that it would be the best thing for the patient. ? For the next few days basic supportive care was continued, today 09/10/2022, I had another discussion with the family and they expressed their desire to proceed with [employer] and terminal extubation (please see separate note for details). The above was carried out without any issues (please see separate note for extubation details as well as time of and pronouncement). Critical care time used for critical evaluation of this patient, diagnosis, treatment and coordination of care, review her records and documentation TOTAL CRITICAL CARE TIME? 60? MIN . discussion and coordination with consultants, completely separate from any procedures performed. Patient's care was discussed in detail with Dr. Singer.? He is aware of all the above as well as the final events. ? Time Spent with Patient Time attestation: Total time managing care of this patient today ____ minutes. Discharge coordination time: Greater than 30 minutes Quality: Safe Use of Opioids Does Pt have an Active Cancer Diagnosis on the Problem List?: No Quality: Stroke Does the patient have a stroke diagnosis?: No Physical Exam Vital Signs: Vital Signs: Last Vital Signs Temp 102 F H 09/10/22 20:08 Pulse 127 H 09/10/22 20:08 Resp 30 H 09/10/22 21:04 BP 115/61 09/10/22 20:08 Pulse Ox 95 09/10/22 20:08 O2 Del Method 09/10/22 20:08 O2 Flow Rate 2 09/10/22 19:00 FiO2 30 09/10/22 20:08 BMI result Body Mass Index 14.2 DS: Data Data Completed and Pending Labs on day of discharge: Laboratory Results - last 24 hr 09/10/22 09/10/22 09/10/22 04:53 04:55 04:55 WBC 20.2 H RBC 3.31 L Hgb 9.7 L Hct 28.8 L MCV 87.0 MCH 29.3 MCHC 33.7 RDW 16.6 H Plt Count 193 D MPV 12.4 Immature Gran % (Auto) Cancelled Neut % (Auto) Cancelled Lymph % (Auto) Cancelled Carver % (Auto) Cancelled Eos % (Auto) Cancelled Baso % (Auto) Cancelled Lymph # (Auto) Cancelled Carver # (Auto) Cancelled Eos # (Auto) Cancelled Baso # (Auto) Cancelled Abs Immat Gran (auto) Cancelled Absolute Neuts (auto) Cancelled Absolute Nucleated RBC 0.450 H Nucleated RBC % (auto) 2.2 H Neutrophils % (Manual) 74 H Band Neutrophils % 10 H Lymphocytes % (Manual) 14 L Eosinophils % (Manual) 1 Metamyelocytes % 1 Abs Neuts (Manual) 17.0 H Lymphocytes # (Manual) 2.8 Eosinophils # (Manual) 0.2 Metamyelocytes # 0.2 Nucleated RBCs 4 H Smudge Cells PRESENT Dohle Bodies PRESENT Platelet Estimate SLIGHTLY DECREASED Large Platelets PRESENT Plt Morphology Comment NORMAL RBC Morphology NOTED Polychromasia 1+ (0-2) Macrocytosis 1+ (5-14) Target Cells 1+ (5-14) Dixie Cells 1+ (0-2) VBG pH 7.41 VBG pCO2 28 VBG pO2 54 VBG HCO3 18 L VBG O2 Saturation 84.0 VBG Base Excess -5.0 Sodium 151 H Potassium 3.0 L Chloride 117 H Carbon Dioxide 21 L Anion Gap 16 BUN 28 H Creatinine 0.93 Estim Creat Clear Calc 57.2 Estimated GFR > 60 Random Glucose 108 Calcium 7.7 L Phosphorus 3.0 Magnesium 1.8 Albumin 2.7 L Preliminary micro results at discharge 09/04/22 14:53 Blood Culture - Preliminary Blood - Venous Actinomyces odontolyticus 09/04/22 15:11 Blood Culture - Preliminary Blood - Venous Actinomyces odontolyticus 09/04/22 15:11 Blood Culture - Preliminary Blood - Venous Actinomyces odontolyticus 09/07/22 06:26 Blood Culture - Preliminary Blood - Venous Yeast 09/07/22 00:55 Blood Culture - Preliminary Blood - Venous Yeast Discharge Plan Discharge Date/Time: 09/10/22 21:28 Patient Disposition: Discharge Diagnosis: post Cardiopulmonary Arrest/Multiorgan Failure Referrals: Chucho Juarez MD [Primary Care Provider] - 1 Week Discharge Medications: No Action [id number] 30-15-200 mg/5 mL solution 10 ml PO Q6H PRN (Reason: cold symptoms) Qty: 474 0RF levetiracetam 250 mg tablet 500 mg PO BID
== END 2022-09-10 23:11 | disposition expired | DRG 296 ==
LOC: HO.ED 13:44 → HO.EDOVER 14:37 → HO.ICU 14:59
PROVIDERS: Registered Nurse Community Health; Admitting Provider Internal Medicine Pulmonary Disease; Emergency Provider Emergency Medicine; PCP Internal Medicine; Visit Provider Internal Medicine Pulmonary Disease
DX: I46.9 Cardiac arrest, cause unspecified (principal); E43 Unspecified severe protein-calorie malnutrition; G80.0 Spastic quadriplegic cerebral palsy; J96.01 Acute respiratory failure with hypoxia; N17.0 Acute kidney failure with tubular necrosis; J69.0 Pneumonitis due to inhalation of food and vomit; E87.0 Hyperosmolality and hypernatremia; B48.8 Other specified mycoses; R78.81 Bacteremia; R64 Cachexia; Z68.1 Body mass index [BMI] 19.9 or less, adult; G93.1 Anoxic brain damage, not elsewhere classified; Z66 Do not resuscitate; Z51.5 Encounter for palliative care; D64.9 Anemia, unspecified; I95.9 Hypotension, unspecified; L89.322 Pressure ulcer of left buttock, stage 2; G40.909 Epilepsy, unspecified, not intractable, without status epilepticus; Z88.8 Allergy status to other drugs, medicaments and biological substances; Z20.822 Contact with and (suspected) exposure to COVID-19; Z79.899 Other long term (current) drug therapy
CPT/HCPCS: 36415; 70551; 71045; 80048; 80053; 82040; 82803; 83605; 83735; 84100; 84484; 85007; 85025; 85027; 85610; 85730; 86850; 86900; 86901; 86923; 87040; 87077; 87106; 87186; 87205; 87635; 93005; 93306; 94002; 94003; 99285; 99498; C1758; J0171; J0295; J0611; J1170; J1450; J1643; J1953; J2250; J2370; J3010; J3475; P9016; P9047